=== PATIENT | male | born 1980 | race Caucasian/White ===

== ENCOUNTER 2018-03-23 15:55 | Emergency (ER) | payer MEDICAID ==
[2018-03-23] MEDS ORDERED: ONDANSETRON 4 MG/2 ML VIAL IVP ONE (16:56)
[2018-03-23] MEDS ORDERED: NS 1,000 ML IV ONE (16:56)
--- NOTE | 2018-03-23 17:23 | EDPHY ---
H & P Stated Complaint: diarrhea, n/v x 3 days, RUQ abd pain - Personal History Current Tetanus/Diphtheria Vaccine: Yes Current Tetanus Diphtheria and Acellular Pertussis (TDAP): Yes Tetanus Vaccine Date: 2012 - Medical/Surgical History Hx Asthma: No Hx Chronic Respiratory Disease: No Hx Diabetes: No Hx Cardiac Disease: No Hx Renal Disease: No Hx Cirrhosis: No Hx Alcoholism: Yes Hx HIV/AIDS: No Hx Splenectomy or Spleen Trauma: No Other PMH: ETOH - Social History Smoking Status: Current every day smoker Time Seen by Provider: 03/23/18 16:47 HPI/ROS: Chief complaint: Nausea, vomiting and diarrhea History of present illness: This is a 37-year-old male, reports an extensive use of alcohol, currently homeless, who presents to the emergency department for persistent nausea, vomiting and diarrhea. He states the onset of diarrhea began 4 days ago. Multiple episodes daily described as nonbloody. Today he started developed nausea and started to vomit, multiple episodes. Again nonbloody. He has had associated mild abdominal discomfort, primarily in the right upper quadrant. No associated fevers. He was trying to detox from alcohol when symptoms began. He started drinking again today but it did not alleviate symptoms. No report of sick contacts. No recent travel. No recent antibiotic use. In addition, patient reports he has extensive bug bites to his body as he has been sleeping outside is requesting treatment. Review of systems: A complete 10 point review of systems was obtained and other than described above was negative. (Kvng Jimenez) - Physical Exam Exam: General Appearance: Alert, nontoxic. Eyes: Pupils equal and round no pallor or injection. ENT, Mouth: Mucous membranes moist. Respiratory: There are no retractions, lungs are clear to auscultation. Cardiovascular: Regular rate and rhythm. Gastrointestinal: Bowel sounds are normal. The abdomen is soft, nondistended and nontender to palpation. Neurological: Alert and oriented x4. Strength and sensation intact and symmetrical. Skin: Extensive wounds to the body consistent with scabies. No evidence of secondary infection. Musculoskeletal: Extremities are symmetrical, full range of motion. Psychiatric: Patient is oriented X 3, there is no agitation. (Kvng Jimenez) Constitutional: Initial Vital Signs Temperature (C) 36.7 C 03/23/18 15:55 Heart Rate 95 03/23/18 15:55 Respiratory Rate 16 03/23/18 15:55 Blood Pressure 127/74 H 03/23/18 15:55 O2 Sat (%) 93 03/23/18 15:55 O2 Delivery Mode Room Air Allergies/Adverse Reactions: No Known Allergies Allergy (Verified 03/23/18 15:59) Home Medications: Medication Instructions Recorded Permethrin 5% [Elimite 5%] 60 hadley TP ONCE #1 cream 03/23/18 Medical Decision Making ED Course/Re-evaluation: Patient is discussed with my secondary supervising physician Dr. Andrea Toro. Patient presents for nausea, vomiting and diarrhea with associated right upper quadrant abdominal soreness. Further he is complaining of bug bites. He is nontoxic. Vital signs stable. Abdominal exam was performed on presentation and prior to discharge and remained benign. Blood studies are obtained. Mild elevation in lipase and LFTs. No other significant findings. He is IV hydrated and treated with Zofran. He is feeling better. Tolerating oral challenges. I believe he is appropriate for discharge. Symptomatic care is discussed. He is prescribed Zofran. I have also given permethrin for suspected scabies. I did ask if he would like to go to detox, he declined. He is to follow up with a primary care doctor for recheck. Return precautions are given. (Kvng Jimenez) Differential Diagnosis: Included but not limited to gastritis, gastroenteritis, biliary tract disease, pancreatitis as well as bug bite, contact dermatitis, allergic reaction and cellulitis (Kvng Jimenez) - Data Points Laboratory Results: Laboratory Results 03/23/18 16:15 03/23/18 16:15 03/23/18 03/23/18 16:15 16:15 WBC 5.71 10^3/uL 10^3/uL (3.80-9.50) RBC 4.61 10^6/uL 10^6/uL (4.40-6.38) Hgb 15.6 g/dL g/dL (13.7-17.5) Hct 44.0 % % (40.0-51.0) MCV 95.4 fL fL (81.5-99.8) MCH 33.8 pg pg (27.9-34.1) MCHC 35.5 g/dL g/dL (32.4-36.7) RDW 14.2 % % (11.5-15.2) Plt Count 169 10^3/uL 10^3/uL (150-400) MPV 10.3 fL fL (8.7-11.7) Neut % (Auto) 58.6 % % (39.3-74.2) Lymph % (Auto) 20.7 % % (15.0-45.0) [place] % (Auto) 12.1 % % (4.5-13.0) Eos % (Auto) 7.7 % H % (0.6-7.6) Baso % (Auto) 0.7 % % (0.3-1.7) Nucleat RBC Rel Count 0.0 % % (0.0-0.2) Absolute Neuts (auto) 3.35 10^3/uL 10^3/uL (1.70-6.50) Absolute Lymphs (auto) 1.18 10^3/uL 10^3/uL (1.00-3.00) Absolute Monos (auto) 0.69 10^3/uL 10^3/uL (0.30-0.80) Absolute Eos (auto) 0.44 10^3/uL H 10^3/uL (0.03-0.40) Absolute Basos (auto) 0.04 10^3/uL 10^3/uL (0.02-0.10) Absolute Nucleated RBC 0.00 10^3/uL 10^3/uL (0-0.01) Immature Gran % 0.2 % % (0.0-1.1) Immature Gran # 0.01 10^3/uL 10^3/uL (0.00-0.10) Sodium 143 mEq/L mEq/L (135-145) Potassium 3.8 mEq/L mEq/L (3.3-5.0) Chloride 107 mEq/L mEq/L (97-110) Carbon Dioxide 24 mEq/l mEq/l (22-31) Anion Gap 12 mEq/L mEq/L (8-16) BUN 10 mg/dL mg/dL (7-23) Creatinine 0.7 mg/dL mg/dL (0.7-1.3) Estimated GFR > 60 Glucose 101 mg/dL H mg/dL (70-100) Calcium 8.9 mg/dL mg/dL (8.5-10.4) Total Bilirubin 0.4 mg/dL mg/dL (0.1-1.4) Conjugated Bilirubin 0.2 mg/dL mg/dL (0.0-0.5) Unconjugated Bilirubin 0.2 mg/dL mg/dL (0.0-1.1) AST 307 IU/L H IU/L (17-59) ALT 211 IU/L H IU/L (21-72) Alkaline Phosphatase 89 IU/L IU/L (38-126) Total Protein 6.3 g/dL g/dL (6.3-8.2) Albumin 3.7 g/dL g/dL (3.5-5.0) Lipase 358 IU/L H IU/L (23-300) Medications Given: Discontinued Medications Sodium Chloride (Ns) 1,000 mls @ 0 mls/hr IV EDNOW ONE; Wide Open PRN Reason: Protocol Stop: 03/23/18 16:57 Last Admin: 03/23/18 17:01 Dose: 1,000 mls Ondansetron HCl (Zofran) 4 mg IVP EDNOW ONE Stop: 03/23/18 16:57 Last Admin: 03/23/18 17:00 Dose: 4 mg Ondansetron HCl (Zofran Odt 4 Mg Prepack#2) 1 btl TAKEHOME EDNOW ONE Stop: 03/23/18 19:50 Last Admin: 03/23/18 19:59 Dose: Not Given Departure - Departure Disposition: Home, Routine, Self-Care Clinical Impression: Vomiting and diarrhea Abdominal pain Qualifiers: Abdominal location: right upper quadrant Qualified Code(s): R10.11 - Right upper quadrant pain Condition: Good Instructions: Ondansetron (By mouth), Scabies (ED), Acute Nausea and Vomiting ( ED), Acute Diarrhea (ED), Abdominal Pain (ED) Referrals: NONE *PRIMARY CARE P,. [Primary Care Provider] - As per Instructions [facility],. [Clinic] - As per Instructions Prescriptions: Permethrin 5% [Elimite 5%] 60 hadley TP ONCE #1 cream
[2018-03-23 17:31] LABS: PLATELET COUNT 169 10^3/uL (150-400)
[2018-03-23] MEDS ORDERED: ONDANSETRON 4MG PREPACK#2 BTL TAKEHOME ONE (19:49)
[2018-03-23 19:58] VITALS: BP 147/90
== END 2018-03-23 19:59 | disposition home or self-care (01) ==
DX: R10.11 Right upper quadrant pain (principal); R11.10 Vomiting, unspecified; R19.7 Diarrhea, unspecified; E86.9 Volume depletion, unspecified; F10.99 Alcohol use, unspecified with unspecified alcohol-induced disorder; F17.200 Nicotine dependence, unspecified, uncomplicated
CPT/HCPCS: 96374; J2405

== ENCOUNTER 2018-07-11 07:29 | Emergency (ER) | payer MEDICAID ==
[2018-07-11] MEDS ORDERED: ONDANSETRON DISINTEGRATING 4 MG TAB PO ONE (08:02)
--- NOTE | 2018-07-11 08:08 | EDPHY ---
H & P Stated Complaint: Weak, achy, body pain, lightheaded, nausea, cough Time Seen by Provider: 07/11/18 07:56 HPI/ROS: CHIEF COMPLAINT: Cough, myalgias HISTORY OF PRESENT ILLNESS: 38-year-old male presents with cough and myalgias. Onset of moderate myalgias and fatigue yesterday. Associated with slight change in his chronic cough and subjective fever. Feels woozy and nauseated. Did not receive a flu vaccination this year. REVIEW OF SYSTEMS: complete 10 point ROS reviewed and is negative except for the noted elements in the HPI - Personal History Tetanus Vaccine Date: 2012 - Medical/Surgical History Hx Asthma: No Hx Chronic Respiratory Disease: No Hx Diabetes: No Hx Cardiac Disease: No Hx Renal Disease: No Hx Cirrhosis: No Hx Alcoholism: Yes Hx HIV/AIDS: No Hx Splenectomy or Spleen Trauma: No Other PMH: ETOH, orbital fx, concussion 06/02 - Social History Smoking Status: Current every day smoker Alcohol Use: Sober Drug Use: None - Physical Exam Exam: General Appearance: Alert, pleasant, nontoxic-appearing Eyes: Pupils equal and round, no conjunctival injection ENT, Mouth: Mucous membranes moist Neck: Normal inspection Respiratory: Lungs are clear to auscultation, no wheezing Cardiovascular: Regular rate and rhythm Gastrointestinal: Abdomen is soft and nontender Neurological: A&O, nonfocal exam Skin: Warm and dry, no rash Extremities: Normal inspection Psychiatric: Mood and affect normal Constitutional: Initial Vital Signs Temperature (C) 36.3 C 07/11/18 07:44 Heart Rate 85 07/11/18 07:44 Respiratory Rate 16 07/11/18 07:44 Blood Pressure 129/78 H 07/11/18 07:44 O2 Sat (%) 97 07/11/18 07:44 O2 Delivery Mode Room Air Allergies/Adverse Reactions: No Known Allergies Allergy (Verified 03/23/18 15:59) Home Medications: Medication Instructions Recorded Permethrin 5% [Elimite 5%] 60 hadley TP ONCE #1 cream 03/23/18 Ondansetron Odt [Zofran Odt 4 mg 4 mg PO Q4 PRN #6 tab 07/11/18 (*)] Medical Decision Making ED Course/Re-evaluation: This pt presents with an influenza-like illness. Flu swab negative. Zofran given for nausea. Feels better after Zofran, toleration oral fluids well. No evidence of pneumonia; normal VS/O2 sat and normal lung exam. Symptomatic care and warning signs discussed. Differential Diagnosis: includes though not limited to influenza, pneumonia, dehydration, bronchospasm - Data Points Medications Given: Discontinued Medications Ondansetron HCl (Zofran Odt) 4 mg PO EDNOW ONE Stop: 07/11/18 08:03 Last Admin: 07/11/18 08:29 Dose: 4 mg Departure - Departure Disposition: Home, Routine, Self-Care Clinical Impression: Viral syndrome Condition: Good Instructions: Influenza (ED), Viral Syndrome (ED) Additional Instructions: Ibuprofen 600 mg every 6-8 hours for fever and myalgias. Drink plenty of fluids. Return for worsening symptoms or any concerns. [facility] has walk-in appointments for the homeless at the following days/locations. No appointment is needed. Sunday 8-10 [address] @ [facility] 11 AM-1 PM @ [facility] Sunday 8-10:30 AM @ [facility] Sunday 8-10 AM @ [facility] 2-4 PM @ [facility] Sunday 8-10 AM @ [facility] Referrals: [facility],. [Clinic] - As per Instructions Prescriptions: Ondansetron Odt [Zofran Odt 4 mg (*)] 4 mg PO Q4 PRN #6 tab PRN Reason: Nausea
[2018-07-11 09:01] VITALS: BP 138/72
== END 2018-07-11 08:59 | disposition home or self-care (01) ==
LOC: EDUNIT#
DX: B34.9 Viral infection, unspecified (principal); F17.210 Nicotine dependence, cigarettes, uncomplicated

== ENCOUNTER 2018-11-12 16:07 | Inpatient (IN) | payer MEDICAID ==
[2018-11-12] MEDS ORDERED: LORazepam 2 MG/ML INJ IVP ONE (16:10)
--- NOTE | 2018-11-12 16:12 | EDPHY ---
H & P Time Seen by Provider: 11/12/18 16:08 HPI/ROS: CHIEF COMPLAINT: Nausea vomiting HISTORY OF PRESENT ILLNESS: The patient is a 38-year-old alcoholic who his last drink was last night. He began feeling nauseous and vomited several times this morning. He tried to drink vodka but threw it back up. He is slightly tremulous and tachycardic. He denies abdominal pain. No recent fevers or illness. No respiratory symptoms. He did have mild diarrhea. Nonbloody. He was given Zofran by EMS and feels slightly better. Severity: Moderate Modifying factors: Zofran REVIEW OF SYSTEMS: Constitutional: denies: chills, fever, recent illness, recent injury EENTM: denies: blurred vision, double vision, nose congestion Respiratory: denies: cough, shortness of breath Cardiac: denies: chest pain, irregular heart rate, lightheadedness, palpitations Gastrointestinal/Abdominal: denies: abdominal pain, diarrhea, nausea, vomiting, blood streaked stools Genitourinary: denies: dysuria, frequency, hematuria, pain Musculoskeletal: denies: joint pain, muscle pain Skin: denies: lesions, rash, jaundice, bruising Neurological: denies: headache, numbness, paresthesia, tingling, dizziness, weakness Hematologic/Lymphatic: denies: blood clots, easy bleeding, easy bruising Immunologic/allergic: denies: HIV/AIDS, transplant 10 systems reviewed and negative except as noted EXAM: GENERAL: Disheveled, moderate distress HEAD: Atraumatic, normocephalic. EYES: Pupils equal round and reactive to light, extraocular movements intact, sclera anicteric, conjunctiva are normal. ENT: TMs normal, nares patent, oropharynx clear without exudates. Moist mucous membranes. NECK: Normal range of motion, supple without lymphadenopathy or JVD. LUNGS: Breath sounds clear to auscultation bilaterally and equal. No wheezes rales or rhonchi. HEART: Regular rate and rhythm without murmurs, rubs or gallops. ABDOMEN: Soft, nontender, normoactive bowel sounds. No guarding, no rebound. No masses appreciated. BACK: No CVA tenderness, no spinal tenderness, step-offs or deformities EXTREMITIES: Slightly tremulous, Normal range of motion, no pitting or edema. No clubbing or cyanosis. NEUROLOGICAL: Cranial nerves II through XII grossly intact. Normal speech, normal gait. 5/5 strength, normal movement in all extremities, normal sensation , normal reflexes PSYCH: Normal mood, normal affect. SKIN: Warm, dry, normal turgor, no visible rashes or lesions. Source: Patient, EMS Exam Limitations: No limitations - Personal History Tetanus Vaccine Date: 2012 - Medical/Surgical History Hx Asthma: No Hx Chronic Respiratory Disease: No Hx Diabetes: No Hx Cardiac Disease: No Hx Renal Disease: No Hx Cirrhosis: No Hx Alcoholism: Yes Hx HIV/AIDS: No Hx Splenectomy or Spleen Trauma: No Other PMH: ETOH, orbital fx, concussion 06/02 - Family History Significant Family History: No pertinent family hx - Social History Smoking Status: Current every day smoker Alcohol Use: Heavy Constitutional: Initial Vital Signs Temperature (C) 36.9 C 11/12/18 16:15 Heart Rate 134 H 11/12/18 16:15 Respiratory Rate 26 H 11/12/18 16:15 Blood Pressure 99/60 L 11/12/18 16:15 O2 Sat (%) 92 11/12/18 16:15 O2 Delivery Mode Nasal Cannula O2 (L/minute) 2 Allergies/Adverse Reactions: No Known Allergies Allergy (Verified 11/12/18 16:20) Home Medications: Medication Instructions Recorded NK [No Known Home Meds] 11/12/18 Medical Decision Making - Diagnostics EKG Interpretation: An EKG obtained and was read and documented in trace view. Please see trace view for full reading and report. Sinus tachycardia Imaging Results: Imaging Impressions Chest X-Ray 11/12/18 17:28 Impression: Extensive ill-defined airspace disease in the left hemithorax. CT evaluation may be of benefit in further evaluation, as clinically directed. Chest CT 11/12/18 18:16 Impression: 1. Extensive pulmonary consolidation on the left and minimally on the right. This could reflect aspiration in a patient undergoing alcohol withdrawal. 2. Negative for acute posttraumatic abnormality. 3. Hepatic steatosis. 4. See above report for additional findings. Results called and discussed with Andrea Toro M.D. on 11/12/2018 at 19:43. Imaging: Discussed imaging studies w/ membership advisor Radiologist Procedures: Procedure: Ultrasound guidance: Using the linear probe covered in a sterile sheath, a short axis of the vein was obtained. The vein was completely compressible and was identified as separate from the adjacent non-compressible arterial structure. Under real-time guidance, the introducer needle was observed up to the vein, and then punctured it. These images were saved on the database. Central line placement: The indication for the procedure was septic shock. After verbal informed consent from patient; the risks were explained including bleeding, infection, and collapsed lung. Maximal sterile barrier technique was uses including cap, gown, sterile gloves, large sheet, hand washing and chlorhexidine prep. The area anesthetized with 1% lidocaine. The right IJ was punctured with a 19 gauge finder needle, then a wire introducer was placed, a triple-lumen was placed using Seldinger technique. There were no complications. Blood return low pressure, dark blood. The patient tolerated procedure well. CXR results: Slightly to deep as interpreted by myself. Line pulled back 2 cm to 16 at the skin and x-ray redone. Radiologist interpretation is pending. The procedure was performed by myself. ED Course/Re-evaluation: 5:00 p.m. Patient is sleeping but when awakened still slightly tremulous. Still tachycardic. Will hydrate and obtain lab work. Still feels slightly nauseous. Will treat with Haldol. No abdominal tenderness on exam. He states he has had about 10 episodes of vomiting yellow gastric fluid and 3 episodes of loose stool nonbloody all prior to arrival. 5:45 p.m. nursing staff noticed that he desaturated and had coarse breath sounds while sleeping. X-ray was ordered and has a left lower lobe infiltrate. Will initiate sepsis workup and treat with antibiotics and admit. 6:15 p.m. I discussed the case with Dr. Costa who will admit. She requests CT and agrees with central line placement. Differential Diagnosis: Partial list of the Differential diagnosis considered include but were not limited to; gastritis, alcohol withdrawal, pneumonia, sepsis and although unlikely based on the history and physical exam, I also considered acute coronary disease, dissection, arrhythmia. Critical Care Time: Critical care time spent by me, Dr. Toro exclusive with this patient was 45 minutes, exclusive of the PA time exclusive of procedures. The organ system that was at risk was pulmonary and I gave IV fluids, antibiotics, consultation and admission to prevent worsening of the patient's condition - Data Points Laboratory Results: Laboratory Results 11/12/18 17:00 11/12/18 17:00 11/12/18 11/12/18 11/12/18 17:45 17:45 17:00 WBC RBC Hgb Hct MCV MCH MCHC RDW Plt Count MPV Neut % (Auto) Lymph % (Auto) [place] % (Auto) Eos % (Auto) Baso % (Auto) Nucleat RBC Rel Count Absolute Neuts (auto) Absolute Lymphs (auto) Absolute Monos (auto) Absolute Eos (auto) Absolute Basos (auto) Absolute Nucleated RBC Immature Gran % Seg Neutrophils % Band Neutrophils % Lymphocytes % Monocytes % Eosinophils % Basophils % Metamyelocytes % Myelocytes % Promyelocytes % Blast Cells % Immature Gran # Absolute Seg Neuts Absolute Band Neuts Absolute Lymphocytes Absolute Monocytes Absolute Eosinophils Absolute Basophils Absolute Metamyelocyte Absolute Myelocytes Absolute Promyelocytes Absolute Plasma Cells Nucleated RBCs Absolute Blast Cells Plasma Cells % Platelet Estimate Oval Macrocytes PT 15.2 SEC H SEC (12.0-15.0) INR 1.25 H (0.83-1.16) APTT 33.1 SEC SEC (23.0-38.0) VBG Lactic Acid 5.1 mmol/L H mmol/L (0.7-2.1) Sodium 130 mEq/L L mEq/L (135-145) Potassium 4.1 mEq/L mEq/L (3.5-5.2) Chloride 96 mEq/L L mEq/L (97-110) Carbon Dioxide 18 mEq/l L mEq/l (22-31) Anion Gap 16 mEq/L H mEq/L (6-14) BUN 30 mg/dL H mg/dL (7-23) Creatinine 1.1 mg/dL mg/dL (0.7-1.3) Estimated GFR > 60 Glucose 65 mg/dL L mg/dL (70-100) Calcium 6.7 mg/dL L mg/dL (8.5-10.4) Total Bilirubin 0.9 mg/dL mg/dL (0.1-1.4) Conjugated Bilirubin 0.5 mg/dL mg/dL (0.0-0.5) Unconjugated Bilirubin 0.4 mg/dL mg/dL (0.0-1.1) AST 402 IU/L H IU/L (17-59) ALT 169 IU/L H IU/L (21-72) Alkaline Phosphatase 44 IU/L IU/L (38-126) Total Protein 5.6 g/dL L g/dL (6.3-8.2) Albumin 3.1 g/dL L g/dL (3.5-5.0) Lipase 101 IU/L IU/L (23-300) 11/12/18 17:00 WBC 10.70 10^3/uL H 10^3/uL (3.80-9.50) RBC 4.11 10^6/uL L 10^6/uL (4.40-6.38) Hgb 14.8 g/dL g/dL (13.7-17.5) Hct 41.8 % % (40.0-51.0) MCV 101.7 fL H fL (81.5-99.8) MCH 36.0 pg H pg (27.9-34.1) MCHC 35.4 g/dL g/dL (32.4-36.7) RDW 12.8 % % (11.5-15.2) Plt Count 150 10^3/uL 10^3/uL (150-400) MPV 10.1 fL fL (8.7-11.7) Neut % (Auto) Not Reported Lymph % (Auto) Not Reported [place] % (Auto) Not Reported Eos % (Auto) Not Reported Baso % (Auto) Not Reported Nucleat RBC Rel Count Not Reported Absolute Neuts (auto) Not Reported Absolute Lymphs (auto) Not Reported Absolute Monos (auto) Not Reported Absolute Eos (auto) Not Reported Absolute Basos (auto) Not Reported Absolute Nucleated RBC Not Reported Immature Gran % Not Reported Seg Neutrophils % 33.3 % % Band Neutrophils % 33.3 % % Lymphocytes % 2.0 % % Monocytes % 17.2 % % Eosinophils % 0.0 % % Basophils % 0.0 % % Metamyelocytes % 14.2 % % Myelocytes % 0.0 % % Promyelocytes % 0.0 % % Blast Cells % 0.0 % % Immature Gran # Not Reported Absolute Seg Neuts 3.56 10^3/uL 10^3/uL (1.70-6.50) Absolute Band Neuts 3.56 10^3/uL H 10^3/uL (0.00-0.70) Absolute Lymphocytes 0.21 10^3/uL L 10^3/uL (1.00-3.00) Absolute Monocytes 1.84 10^3/uL H 10^3/uL (0.30-0.80) Absolute Eosinophils 0.00 10^3/uL L 10^3/uL (0.03-0.40) Absolute Basophils 0.00 10^3/uL L 10^3/uL (0.02-0.10) Absolute Metamyelocyte 1.52 10^3/mL H 10^3/mL (0.00-0.00) Absolute Myelocytes 0.00 10^3/mL 10^3/mL (0.00-0.00) Absolute Promyelocytes 0.00 10^3/uL 10^3/uL (0.00-0.00) Absolute Plasma Cells 0.00 10^3/uL 10^3/uL (0.00-0.00) Nucleated RBCs 0 /100 WBC /100 WBC (0-0) Absolute Blast Cells 0.00 10^3/uL 10^3/uL (0.00-0.00) Plasma Cells % 0.0 % % Platelet Estimate ADEQUATE (ADEQ) Oval Macrocytes 1+ H PT INR APTT VBG Lactic Acid Sodium Potassium Chloride Carbon Dioxide Anion Gap BUN Creatinine Estimated GFR Glucose Calcium Total Bilirubin Conjugated Bilirubin Unconjugated Bilirubin AST ALT Alkaline Phosphatase Total Protein Albumin Lipase Microbiology Results: MICROBIOLOGY 11/12/18 18:00 Nasal, Sinus - Swab Respiratory Panel (PCR) - Final No Organism Detected By Pcr Medications Given: Sodium Chloride (Ns) 1,000 mls @ 150 mls/hr IV CONT JATIN Stop: 05/11/19 18:29 Last Admin: 11/12/18 19:58 Dose: 1,000 mls Metronidazole/Sodium Chloride (Flagyl 500 Mg (Premix)) 100 mls @ 100 mls/hr IV Q8H JATIN PRN Reason: Protocol Stop: 12/12/18 19:29 Last Admin: 11/12/18 19:58 Dose: 100 mls Lorazepam (Ativan Injection) 0 mg IVP Q1H PRN; Protocol PRN Reason: Alcohol Withdrawal w/IV access Stop: 05/11/19 18:19 Last Admin: 11/12/18 19:59 Dose: 2 mg Discontinued Medications Acetaminophen (Tylenol) 1,000 mg PO EDNOW ONE Stop: 11/12/18 17:58 Last Admin: 11/12/18 18:04 Dose: 1,000 mg Haloperidol Lactate (Haldol Injection) 5 mg IVP EDNOW ONE Stop: 11/12/18 16:57 Last Admin: 11/12/18 17:06 Dose: 5 mg Sodium Chloride (Ns) 1,000 mls @ 0 mls/hr IV EDNOW ONE; Wide Open PRN Reason: Protocol Stop: 11/12/18 16:57 Last Admin: 11/12/18 17:02 Dose: 1,000 mls Sodium Chloride (Ns) 1,000 mls @ 0 mls/hr IV EDNOW ONE; Wide Open PRN Reason: Protocol Stop: 11/12/18 16:57 Last Admin: 11/12/18 17:02 Dose: 1,000 mls Azithromycin 500 mg/ Sodium (Chloride) 255 mls @ 255 mls/hr IV EDNOW ONE PRN Reason: Protocol Stop: 11/12/18 18:42 Last Admin: 11/12/18 18:26 Dose: 255 mls Ceftriaxone Sodium/Dextrose (Rocephin 1 Gm (Premix)) 50 mls @ 100 mls/hr IV EDNOW ONE PRN Reason: Protocol Stop: 11/12/18 18:10 Last Admin: 11/12/18 18:13 Dose: 50 mls Sodium Chloride (Ns) 2,300 mls @ 4,600 mls/hr 30 ml/kg infuse over 30 min ( 2300 ml) IV EDNOW ONE PRN Reason: Protocol Stop: 11/12/18 18:10 Last Admin: 11/12/18 17:51 Dose: Not Given Sodium Chloride (Ns) 1,000 mls @ 0 mls/hr IV EDNOW ONE; Wide Open PRN Reason: Protocol Stop: 11/12/18 18:12 Last Admin: 11/12/18 18:12 Dose: 1,000 mls Lorazepam (Ativan Injection) 2 mg IVP EDNOW ONE Stop: 11/12/18 16:11 Last Admin: 11/12/18 16:13 Dose: 2 mg Departure - Departure Disposition: [facility] Inpatient Acute Clinical Impression: Septic shock Left lower lobe pneumonia Qualifiers: Pneumonia type: due to unspecified organism Qualified Code(s): J18.1 - Lobar pneumonia, unspecified organism Vomiting Qualifiers: Vomiting type: unspecified Vomiting Intractability: non-intractable Nausea presence: with nausea Qualified Code(s): R11.2 - Nausea with vomiting, unspecified Alcohol withdrawal Qualifiers: Complication of substance-induced condition: uncomplicated Qualified Code(s): F10.230 - Alcohol dependence with withdrawal, uncomplicated Condition: Critical
[2018-11-12] MEDS ORDERED: NS 1,000 ML IV ONE ×4 (16:56→20:51)
[2018-11-12] MEDS ORDERED: HALOPERIDOL LACT 5 MG/ML INJ IVP ONE (16:56)
[2018-11-12 17:16] LABS: PLATELET COUNT 150 10^3/uL (150-400)
[2018-11-12] MEDS ORDERED: NS 2,300 ML IV ONE (17:41)
[2018-11-12] MEDS ORDERED: AZITHROMYCIN IV 500 MG in NS 250 ML IV ONE (17:43)
[2018-11-12] MEDS ORDERED: ACETAMINOPHEN 500 MG TAB PO ONE (17:57)
[2018-11-12 18:01] LABS: INR 1.25 (0.83-1.16); PROTIME(PATIENT) 15.2 SEC (12.0-15.0)
--- NOTE | 2018-11-12 18:04 | CPEKG ---
Test Reason : OPEN Blood Pressure : / mmHG Vent. Rate : 134 BPM Atrial Rate : 134 BPM P-R Int : 112 ms QRS Dur : 076 ms QT Int : 290 ms P-R-T Axes : 037 062 -13 degrees QTc Int : 433 ms Sinus tachycardia Confirmed by Andrea Toro ([id number]) on 11/12/2018 6:04:14 PM Referred By: Andrea Toro Confirmed By:Andrea Toro
[2018-11-12] MEDS ORDERED: ONDANSETRON DISINTEGRATING 4 MG TAB PO PRN (18:18)
[2018-11-12] MEDS ORDERED: ONDANSETRON 4 MG/2 ML VIAL IVP PRN (18:18)
[2018-11-12] MEDS ORDERED: ACETAMINOPHEN 325 MG TAB PO PRN (18:18)
[2018-11-12] MEDS ORDERED: IOPAMIDOL (ISOVUE-300) 100 ML BTL ONE (18:19)
[2018-11-12] MEDS ORDERED: FLUMAZENIL 0.5 MG/5 ML MDV IVP PRN (18:20)
[2018-11-12] MEDS ORDERED: NOREPINEPHRINE BITARTRATE 4 MG in NS 500 ML IV SCH (19:30)
[2018-11-12] MEDS ORDERED: *PHM DO NOT USE-METRONIDAZOLE 5 MG/ML IV PED/NEWBORN SYR IV ONE (19:38)
[2018-11-12] MEDS: NS 1,000 ML IV SCH (19:58)
[2018-11-12] MEDS: LORazepam 2 MG/ML INJ IVP PRN ×2 (19:59→21:17)
[2018-11-12] MEDS ORDERED: METRONIDAZOLE 500 MG/NACL/100 ML BAG IV ONE (20:00)
--- NOTE | 2018-11-12 20:05 | GHP ---
[f rep st] HISTORY AND PHYSICAL DATE OF ADMISSION: 11/12/2018 CHIEF COMPLAINT: Sepsis, nausea, vomiting. HISTORY OF PRESENT ILLNESS: A 38-year-old male with alcohol dependence. His last drink was this morning. Presents with nausea, vomiting, cough. He was feeling fine up until last night when he developed these symptoms. He has been coughing with blood-streaked sputum for the past day. He has felt feverish with cold sweats, along with myalgias. He is living in a longterm. Had 2 episodes of nonbloody diarrhea today. Drinks 1.75 L of vodka daily. Smokes a pack a day. In the emergency room, he was tachycardic to 140s, with systolic blood pressure in the 90s. Central line was placed by Dr. Toro. The patient transferred to ICU for further care. REVIEW OF SYSTEMS: I completed a 10-point review of systems, negative except as noted in HPI. PAST MEDICAL HISTORY: Alcohol dependence, tobacco dependence. PAST SURGERIES: None. HOME MEDICATIONS: None. ALLERGIES: None. FAMILY HISTORY: No heart attacks or strokes. PHYSICAL EXAMINATION: VITAL SIGNS: Temperature 37.3, blood pressure initially 107/91, now 91/67, heart rate is in the 140s, respirations 20s to 40s, 96% on 3 L. GENERAL: Is ill appearing, tremulous, reanna face. HEENT: Dry mucous membranes. CV: Tachy, regular. LUNGS: Coarse, decreased, left midlung to base. ABDOMEN: Soft, nontender. : No Wynn. MUSCULOSKELETAL: Bruising of bilateral knees. NEURO: 2 through 12 intact. Tremulous, tongue fasciculations. PSYCH: Alert and oriented x3. LABORATORY DATA: WBC 10, hemoglobin 14, hematocrit 41, platelets 150. INR 1.2 , PT 15. Lactate 5.1, repeat 3.7. Sodium 130, potassium 4.1, chloride 96, carbon dioxide 18, anion gap 16, creatinine 1.1, glucose 65, calcium 6.7. AST 42, ALT 109, total protein 5.6, albumin 3.1, total bilirubin 0.9, lipase 101. Chest x-ray is personally reviewed by me: Left hemithorax opacity. EKG personally reviewed by me: Sinus tachycardia. ASSESSMENT/PLAN: 1. Severe sepsis: Indicated by elevated lactate, tachycardia, and pneumonia. Sputum and blood cultures pending. Respiratory/GI PCR pending. Treat for CAP with CTX/Azithro, Flagyl added for aspiration. Aggressive IVFs. Pressors if needed 2. Left sided pneumonia: Ill-defined on x-ray. Will further delineate with CT of chest. Currently stable on RA, but very tachypneic; may tire out and need intubation. 3. Tachycardia: Due to dehydration and alcohol withdrawal. Monitor on telemetry. Clinical [place] Withdrawal Assessment. 4. Alcohol dependence. Evidence of withdrawal now. ClWA, IV fluids. Check Mg/ Phos/Ca. 5. Hypovolemic hyponatremia. Replete. 6. Metabolic anion gap acidosis secondary to alcohol/starvation ketoacidosis. Rehydrate. 7. Mild acute kidney injury, creatinine 1.1, due to nausea, vomiting. 8. Hypoglycemia: Initially 65, repeat is 93. 9. Transaminitis due to alcohol. 10. Lack lactic acidosis: Secondary to alcohol, starvation, acute infection. Is trending down with fluids. We will repeat. 11. Diet: Regular. 12. Deep venous thrombosis prophylaxis: Lovenox. DISPOSITION: Patient warrants ICU admission. He is critically ill with severe sepsis, warranting IV fluids, antibiotics, possible pressors. Time spent on critical care: 60 minutes evaluating patient bedside, reviewing labs, imaging, discussing case with Dr. Toro. /[id number]/MODL [id number]
[2018-11-12] MEDS ORDERED: NS BOLUS 1000 ML IV ONE (21:30)
[2018-11-12] MEDS ORDERED: IPRATROPIUM/ALBUTEROL 3 ML DEYVIAL IH PRN (22:53)
[2018-11-12] MEDS: NICOTINE 21 MG/24 HR PATCH TD SCH (23:02)
[2018-11-12] MEDS ORDERED: CALCIUM GLUCONATE 50 ML IV ONE (23:30)
[2018-11-12] MEDS ORDERED: PROTOCOL CALCIUM 1 DOSE IV PRN (23:32)
[2018-11-12] MEDS ORDERED: PROTOCOL MAGNESIUM 1 DOSE IV PRN (23:32)
[2018-11-12] MEDS ORDERED: PROTOCOL POTASSIUM 1 DOSE MISC PRN (23:32)
[2018-11-12] MEDS ORDERED: PROTOCOL K PHOSPHATE 1 DOSE IV PRN (23:32)
[2018-11-12] MEDS ORDERED: MAGNESIUM SULF 2 GM/WATER 50 ML IV ONE (23:36)
--- NOTE | 2018-11-13 00:02 | HOSPPROG ---
Hospitalist Progress Note Assessment/Plan: Hospitalist night float note Patient was discussed with Dr. Costa before going off shift. 38-year-old gentleman with history of alcohol dependence who presents with complaints of cough. Patient was found to be septic with some mildly low blood pressures related to a significant left sided pneumonia. He was fluid responsive. He had a central line put into place and started on antibiotics. Patient additionally was noted to be in alcohol withdrawal requiring at time of my interview 6 mg of Ativan. Patient with increasing respiratory rate more shallow breaths and need for increasing oxygen. Case and current labs were discussed with Dr. Sadler (pulm/cc) - discussed and recommended intubation in setting of severe sepsis along with likely need for additional sedation for alcohol withdrawal. He is on route to the hospital. Patient is able to wake to name. I did briefly discussed with him need for intubation. He is amenable to proceed. Additional chronic critical care time today 11/12/2018 30 minutes Objective: Vital Signs Temp Pulse Resp BP Pulse Ox 36.8 C 135 H 40 H 105/78 92 11/12/18 22:00 11/12/18 23:05 11/12/18 23:05 11/12/18 23:00 11/12/18 23:05 Microbiology 11/12/18 20:25 - Final Sputum, Expectorated 11/11/18 11/12/18 11/13/18 05:59 05:59 05:59 Intake Total 200 Output Total 1475 Balance -1275 PT 15.2 SEC (12.0-15.0) H 11/12/18 17:45 INR 1.25 (0.83-1.16) H 11/12/18 17:45 ICD10 Worksheet Patient Problems: Problems Problem Status Onset Alcohol withdrawal Acute Left lower lobe pneumonia Acute Septic shock Acute Vomiting Acute
[2018-11-13] MEDS ORDERED: PROPOFOL/EMULSION 1,000 MG/100 ML BOTTLE IV ONE (00:03)
[2018-11-13] MEDS: LORazepam 2 MG/ML INJ IVP PRN (00:32)
[2018-11-13] MEDS ORDERED: MIDAZOLAM 2 MG/2 ML VIAL IVP ONE (00:45)
[2018-11-13] MEDS ORDERED: ETOMIDATE 40 MG/20 ML INJ IV ONE (00:45)
[2018-11-13] MEDS: PROPOFOL/EMULSION 100 ML IV SCH ×5 (00:50→20:12)
[2018-11-13] MEDS: DEXMEDETOMIDINE HCL 400 MCG in NS 100 ML IV SCH ×4 (00:50→10:20)
[2018-11-13] MEDS: fentaNYL/NACL 100 ML IV SCH (02:00)
[2018-11-13] MEDS: ACETAMINOPHEN 650 MG SUPP PR PRN ×2 (02:01→08:18)
--- NOTE | 2018-11-13 02:11 | GCON ---
[f rep st] CONSULTATION CRITICAL CARE CONSULTATION. DATE OF CONSULTATION: 11/13/2018 HISTORY OF PRESENT ILLNESS: This patient is a 38-year-old male with a history of alcohol dependence who was admitted late yesterday complaining of blood-streaked sputum for the last day. He has also b een complaining of sweats and generalized myalgias, as well as 2 episodes of diarrhea. He drinks ani rly 2 L of vodka daily and smokes regularly and in the emergency department had a borderline blood pr essure and significant tachycardia. He was admitted to the intensive care unit and started on CIWA p rotocol. He received about 6 mg of Ativan during his time in the ICU, but his respiratory rate was 3 0 to 50 breaths per minute, and an arterial blood gas showed a CO2 of only about 40, which should be 30 or 20. In any case, a chest x-ray and CT scan showed a dense consolidation in the left upper lobe and left lower lobe. His white count was 10 when he got here and he was given antibiotics. However , based on the above data, he was emergently intubated, which is dictated separately. REVIEW OF SYSTEMS: Otherwise negative as far as I can tell. PAST MEDICAL HISTORY: Only alcoholism and homelessness. He lives, I believe, in a nursing home and is a smoker. PAST SURGICAL HISTORY: None. MEDICATIONS: Home medication are none, but currently he is getting Tylenol, DuoNeb, Zithromax, ceftr iaxone, Lovenox, Ativan, Flagyl, NicoDerm, Zofran, normal saline, thiamin. PHYSICAL EXAM: VITAL SIGNS: Blood pressure 104/58; heart rate of 138, sinus rhythm; respiratory rat e 48; oxygen saturation 95% on 5 L. GENERAL: He was arousable but confused and not agitated, but in obvious respiratory distress and was not able to speak in full sentences. SKIN: Warm and dry. RONNI NT: Pupils equally round and reactive to light. Nonicteric and noninjected. Mucous membranes were moist without erythema or exudate. NECK: Supple without adenopathy or jugular vein distention. CHRISTIAN GS: Breath sounds revealed bilateral coarse breath sounds without wheezing. HEART: Regular rate an d rhythm without murmurs, rubs, or gallops. ABDOMEN: Soft, nontender, nondistended without hepatosp lenomegaly that I could tell. EXTREMITIES: No clubbing, cyanosis, or edema. NEUROLOGIC: Nonfocal. SKIN: There was no evidence of rash. OBJECTIVE DATA: White count of 10.7, hematocrit of 41.8, platelets of 150. INR 1.25. Blood gas damian wed pH 7.34, pCO2 40, pO2 80, bicarb 21, sat 94%. Basic metabolic panel was initially remarkable for sodium 130, now 135, and a bicarb of 18 with a normal anion gap. Magnesium was low at 0.8. This jean s been replaced. Ionized calcium 0.91. Phosphorus 3.5. AST and ALT were 402 and 169 with alkaline phosphatase of 44, albumin 3.1, total bilirubin of 0.5. Tox screen shows only marijuana. Urinary st rep antigen is pending. Imaging as described above. ASSESSMENT AND PLAN: 1. Severe community-acquired pneumonia with potential for aspiration involvement given his emesis. I agree with the current antibiotics until cultures show otherwise, but my estimation is that he will likely get worse before better and required the emergent intubation. I do not believe that steroids would be indicated at this time for his pneumonia, but we may consider at a later date. 2. Alcohol withdrawal. He reported to the emergency room his last drink was 24 hours prior to admis doreen. He was showing signs of alcohol withdrawal and was under the [facility] protocol for this. At this point, we will use scheduled Ativan. I will add Precedex to the sedation protocol and continue to ev aluate him. 3. Transaminitis. This is likely related to alcohol since there is no evidence of septic shock at t his moment. In any case, we will continue to follow these closely. We may have to check hepatitis s erologies. A total of about 60 minutes of critical care time was required separate from procedures. /[id number]/MODL
[2018-11-13] MEDS ORDERED: MAGNESIUM SULF 1 GM/DEXTROSE 100 ML IV ONE (03:05)
[2018-11-13] MEDS: NOREPINEPHRINE BITARTRATE 16 MG in NS 250 ML IV SCH ×3 (03:09→15:57)
--- NOTE | 2018-11-13 03:16 | GPN ---
[f rep st] PROCEDURE NOTE PROCEDURE: Emergent intubation. INDICATION: Respiratory failure with severe community-acquired pneumonia. CONSENT: Was waived due to the emergent nature of the procedure, though I did explain it to the leona ent, who was in distress at the time. ANESTHESIA: Conscious sedation was achieved using a total of 1 mg Versed, 2 mg Ativan, and 40 mg of etomidate. The patient tolerated these well without complication. DESCRIPTION OF PROCEDURE: An 8-0 endotracheal tube was passed on the first attempt using a GlideScop e after pre-oxygenation up to about 100% with bag mask valve ventilation. The patient tolerated thes e well, and there were no obvious complications. The tube had appropriate condensation with equal br eath sounds and no midepigastric sounds. Oxygen saturation stayed at 98%, and a post procedure chest x-ray is pending at this time. There was also adequate color change on capnography. /[id number]/MODL
[2018-11-13] MEDS ORDERED: CALCIUM GLUCONATE 50 ML IV ONE (05:57)
[2018-11-13] MEDS: LORazepam 2 MG/ML INJ IVP SCH ×3 (06:00→18:00)
[2018-11-13] MEDS: NS 1,000 ML IV SCH ×2 (06:29→13:56)
[2018-11-13] MEDS: FAMOTIDINE 20 MG/NACL 50 ML IV SCH ×2 (08:18→20:10)
[2018-11-13] MEDS: NICOTINE 21 MG/24 HR PATCH TD SCH (08:18)
[2018-11-13] MEDS: ENOXAPARIN 40 MG/0.4 ML SYR SC SCH (08:18)
[2018-11-13] MEDS: CHLORHEXIDINE GLUCONATE 15 ML UDL PO SCH ×2 (08:20→20:10)
[2018-11-13] MEDS ORDERED: AZITHROMYCIN 250 MG TAB PO SCH (09:00)
[2018-11-13] MEDS: VASOPRESSIN 25 UNIT in D5W 250 ML IV SCH ×3 (09:45→18:25)
[2018-11-13] MEDS: THIAMINE HCL 500 MG in NS 100 ML IV SCH (10:20)
--- NOTE | 2018-11-13 11:22 | PDMN ---
Medical Necessity Medical necessity: Pt meets IP criteria per MD & MCG M-160; est los >2 mn for eval/tx of severe sepsis w/tachycardia, tachypnea, pneumonia & alcohol withdrawal; admit to ICU for close monitoring, intubation & CIWA/sepsis protocols; hx alcohol dependence; per H&P & order 11/12
--- NOTE | 2018-11-13 11:29 | ASMTCMCOM ---
CM Note CM Note Notes: Pt is a 38 yo M presents with pneumonia, sepsis and etoh withdrawl. History of drinking 2L/ day. History of meth use, last use 2 months ago. Pt is homeless. Pt is currently on vent. Ethics consulted to help with Health Care Proxy search. CM to follow. Plan: Needs CAGE once able to engage in conversation Date Signed: 11/13/2018 11:28 AM Electronically Signed By:STACEY Angel
--- NOTE | 2018-11-13 14:50 | PDINTPN ---
Draw Frame Operator Progress Note Assessment/Plan: 38 M with history of alcoholism admitted 11/12 with severe pna and etoh withdrawal. He was treated with antibiotics and CIWA protocol but developed severe dyspnea and required emergent intubation late 11/12. He was difficult to sedate and required precedex, propofol, fentanyl and 6 hr ativan. He dropped his BP early 11/13 and required levophed, but this was titrated down rapidly with reduction in sedation medication. * Pneumonia- some history suggests aspiration, but likely severe CAP. Currently treated with CTX, zithromax, and Flagyl. Cultures NTD. Slight increase WBC today and persistent high fever * acute respiratory failure with hypoxia and vent management 08/17 PNA- minimal vent support with adequate ventilation. Recheck am CXR, abg. * hypotension- consistent with hypovolemia and likely septic shock. Add vasopressin and continue to titrate levophed. If not <10mcg by mid-afternoon will check NICOM. * ETOH wd- continue scheduled ativan for now but may be able to reduce precedex and improve BP. * Transaminitis- possible shock liver. Continue to observe and consider hep serologies if not improved * * critical care time 45 minutes Subjective: hypotension following intubation last pm and with addition of fentanyl. Apparently difficult to sedate Objective: Vital Signs Temp Pulse Resp BP Pulse Ox 39.1 C H 87 20 93/72 L 96 11/13/18 14:28 11/13/18 14:28 11/13/18 14:28 11/13/18 14:28 11/13/18 14:28 Microbiology 11/12/18 20:25 - Final Sputum, Expectorated Laboratory Results 11/13/18 05:30 11/13/18 11:35 11/12/18 11/13/18 11/14/18 05:59 05:59 05:59 Intake Total 4493 Output Total 2825 Balance 1668 PT 15.2 SEC (12.0-15.0) H 11/12/18 17:45 INR 1.25 (0.83-1.16) H 11/12/18 17:45 Physical Exam - Physical Exam General Appearance: WD/WN, no apparent distress, obtunded EENT: PERRL/EOMI, ET tube Neck: supple Respiratory: rhonchi, No respiratory distress, No accessory muscle use, No wheezing Cardiac/Chest: regular rate, rhythm, No edema, No JVD Abdomen: non-tender, soft, No distended Skin: normal color, warm/dry, No cyanosis Lymphatic: no adenopathy Extremities: No pedal edema Neuro/Psych: no motor/sensory deficits, cognition abnormalities, No abnormal auto parts manager II-XII ICD10 Worksheet Patient Problems: Problems Problem Status Onset Alcohol withdrawal Acute Left lower lobe pneumonia Acute Septic shock Acute Vomiting Acute
--- NOTE | 2018-11-13 15:50 | HOSPPROG ---
Hospitalist Progress Note Assessment/Plan: 1. Septic Shock - Indicated by elevated lactate, tachycardia, leukocytosis, hypotension requiring pressors, and source L PNA - S/p 30 cc/kg IVF on admission - Requiring initiation of Levophed and Vasopressin to maintain MAP >65, wean as tolerated - Blood and sputum cultures pending - Started on Ceftriaxone/Azithromycin/Flagyl on admission, will continue for now pending culture data 2. Acute Hypoxic Respiratory Failure - RR 40-50's soon after admission requiring intubation, in setting of heavy alcohol use/withdrawal - CXR showing L sided PNA on CT, likely aspiration given hx - Plan to repeat CXR, ABG in the AM - Wean vent as tolerated, management per pulm 3. ETOH Withdrawal - Reported drinking 2L Vodka daily - Initiaed on scheduled Ativan and precedex on admission, continue for now - Plan to wean precedex as tolerated 4. Transaminitis - AST 619, ALT 209, T Bili 1.3 on admission - In setting of heavy alcohol use as above - Continue to monitor, may be component of shock liver as well 5. Hypovolemix Hyponatremia - S/p IV on admission - Na 135 this AM, continue to monitor FEN: IVF, NPO DVT PPx: Lovenox Code: FULL Dispo: Pending clinical course Critical Care time spent on patient care 40 minutes Objective: Vital Signs Temp Pulse Resp BP Pulse Ox 37.6 C 79 24 H 100/66 97 11/13/18 15:37 11/13/18 15:37 11/13/18 15:37 11/13/18 15:37 11/13/18 15:37 Microbiology 11/12/18 20:25 - Final Sputum, Expectorated Laboratory Results 11/13/18 05:30 11/13/18 11:35 11/12/18 11/13/18 11/14/18 05:59 05:59 05:59 Intake Total 4493 Output Total 2825 Balance 1668 PT 15.2 SEC (12.0-15.0) H 11/12/18 17:45 INR 1.25 (0.83-1.16) H 11/12/18 17:45 ICD10 Worksheet Patient Problems: Problems Problem Status Onset Alcohol withdrawal Acute Left lower lobe pneumonia Acute Septic shock Acute Vomiting Acute
[2018-11-13] MEDS: AZITHROMYCIN IV 250 MG in D5W 250 ML IV SCH (18:00)
[2018-11-14] MEDS: LORazepam 2 MG/ML INJ IVP SCH ×4 (00:53→17:04)
[2018-11-14] MEDS: NS 1,000 ML IV SCH (00:54)
[2018-11-14] MEDS: VASOPRESSIN 25 UNIT in D5W 250 ML IV SCH ×2 (03:44→20:14)
[2018-11-14] MEDS: PROPOFOL/EMULSION 100 ML IV SCH ×4 (03:44→21:57)
[2018-11-14 04:32] LABS: PLATELET COUNT 147 10^3/uL (150-400)
[2018-11-14] MEDS: CHLORHEXIDINE GLUCONATE 15 ML UDL PO SCH ×2 (08:28→21:18)
[2018-11-14] MEDS: FAMOTIDINE 20 MG/NACL 50 ML IV SCH ×2 (09:53→21:18)
[2018-11-14] MEDS: NICOTINE 21 MG/24 HR PATCH TD SCH (09:54)
[2018-11-14] MEDS: ENOXAPARIN 40 MG/0.4 ML SYR SC SCH (09:54)
[2018-11-14] MEDS: THIAMINE HCL 500 MG in NS 100 ML IV SCH (09:54)
--- NOTE | 2018-11-14 12:51 | PDINTPN ---
Interlocker Maintainer Progress Note Assessment/Plan: 38 M with history of alcoholism admitted 11/12 with severe pna and etoh withdrawal. He was treated with antibiotics and CIWA protocol but developed severe dyspnea and required emergent intubation late 11/12. He was difficult to sedate and required precedex, propofol, fentanyl and 6 hr ativan. He dropped his BP early 11/13 and required levophed, but this was titrated down rapidly with reduction in sedation medication. * Pneumonia- some history suggests aspiration, but likely severe CAP. Currently treated with CTX, zithromax, and Flagyl. Cultures NTD. Fever has resolved, but WBC still rising, perhaps catching up. If WBC continues to rise will consider bronch and/or CT chest looking for necrosis/abscess * acute respiratory failure with hypoxia and vent management 2/2 PNA- minimal vent support with adequate ventilation. Stable CXR. Weaning trial today * hypotension- consistent with hypovolemia and likely septic shock. Vasopressin was off resulting in higher levophed dose- changed and now on vasopressin with off/on levophed so overall hemodynamics improving. * Non-gap metabolic acidosis likely from high volume NS given rise in chloride. Observe * ETOH wd- continue scheduled ativan. Precedex dc'd * Transaminitis- likely shock liver, but hep serologies sent * FEN- start TF today. * critical care time 65 minutes 11/14/18 12:46 Subjective: still on pressors though coming down. More alert today Objective: Vital Signs Temp Pulse Resp BP Pulse Ox 37.4 C 77 22 H 93/63 L 100 11/14/18 12:00 11/14/18 12:00 11/14/18 12:00 11/14/18 12:00 11/14/18 12:00 Microbiology 11/12/18 20:25 - Final Sputum, Expectorated Laboratory Results 11/14/18 04:10 11/14/18 08:30 11/13/18 11/14/18 11/15/18 05:59 05:59 05:59 Intake Total 4493 3461 Output Total 2825 1350 Balance 1668 2111 PT 15.2 SEC (12.0-15.0) H 11/12/18 17:45 INR 1.25 (0.83-1.16) H 11/12/18 17:45 Physical Exam - Physical Exam General Appearance: WD/WN, no apparent distress, other (sedated, but nods head appropriately) EENT: PERRL/EOMI, ET tube, No scleral icterus (R), No scleral icterus (L) Neck: supple Respiratory: decreased breath sounds, rhonchi, No respiratory distress, No accessory muscle use Cardiac/Chest: regular rate, rhythm, No edema, No JVD Abdomen: non-tender, soft, No distended Skin: normal color, warm/dry, No cyanosis Lymphatic: no adenopathy Extremities: No pedal edema Neuro/Psych: no motor/sensory deficits, cognition abnormalities, No abnormal mathematics professor II-XII ICD10 Worksheet Patient Problems: Problems Problem Status Onset Alcohol withdrawal Acute Left lower lobe pneumonia Acute Septic shock Acute Vomiting Acute
[2018-11-14 14:33] LABS: HEPATITIS B SURFACE ANTIGEN NEGATIVE (NEGATIVE)
[2018-11-14 14:39] LABS: HEPATITIS A ANTIBODY IGM (BCH) NEGATIVE (NEGATIVE); HEPATITIS B CORE AB IGM NEGATIVE (NEGATIVE)
[2018-11-14 14:57] LABS: HEPATITIS C ANTIBODY TOTAL NEGATIVE (NEGATIVE)
--- NOTE | 2018-11-14 16:29 | HOSPPROG ---
Hospitalist Progress Note Assessment/Plan: 1. Septic Shock - Indicated by elevated lactate, tachycardia, leukocytosis, hypotension requiring pressors, and source L PNA - S/p 30 cc/kg IVF on admission - Requiring initiation of Levophed and Vasopressin to maintain MAP >65, wean as tolerated - Blood and sputum cultures pending - Started on Ceftriaxone/Azithromycin/Flagyl on admission, will continue for now pending culture data 2. Acute Hypoxic Respiratory Failure - RR 40-50's soon after admission requiring intubation, in setting of heavy alcohol use/withdrawal - CXR showing L sided PNA on CT, likely aspiration given hx - Wean vent as tolerated, management per pulm 3. ETOH Withdrawal - Reported drinking 2L Vodka daily - Initiated on scheduled Ativan and precedex on admission, continue for now - Plan to wean precedex as tolerated 4. Transaminitis - AST 619, ALT 209, T Bili 1.3 on admission - In setting of heavy alcohol use as above - Continue to monitor, may be component of shock liver as well 5. Hypovolemic Hyponatremia - S/p IV on admission - Na 137 this AM, continue to monitor FEN: IVF, NPO DVT PPx: Lovenox Code: FULL Dispo: Pending clinical course Critical Care time spent on patient care 30 minutes Subjective: Pt intubated and sedated Objective: Vital Signs Temp Pulse Resp BP Pulse Ox 37.2 C 82 22 H 89/64 L 99 11/14/18 16:00 11/14/18 16:00 11/14/18 16:00 11/14/18 16:00 11/14/18 16:00 Microbiology 11/12/18 20:25 - Final Sputum, Expectorated Laboratory Results 11/14/18 04:10 11/14/18 13:00 11/13/18 11/14/18 11/15/18 05:59 05:59 05:59 Intake Total 4493 3461 Output Total 2825 1350 Balance 1668 2111 PT 15.2 SEC (12.0-15.0) H 11/12/18 17:45 INR 1.25 (0.83-1.16) H 11/12/18 17:45 - Physical Exam Constitutional: chronically ill appearing Eyes: PERRL Ears, Nose, Mouth, Throat: dry mucous membranes (ETT in place) Cardiovascular: regular rate and rhythym Respiratory: bronchial breath sounds, rhonchi Gastrointestinal: soft, non-tender abdomen Genitourinary: andres in urethra Skin: warm Neurologic: No AAOx3 Psychiatric: No interacting appropriately (Sedated) ICD10 Worksheet Patient Problems: Problems Problem Status Onset Alcohol withdrawal Acute Left lower lobe pneumonia Acute Septic shock Acute Vomiting Acute
--- NOTE | 2018-11-14 16:37 | ASMTCMCOM ---
CM Note CM Note Notes: In attempt to start searching for possible medically proxy, CM reached out to [facility]. Pt was last seen there in Aug 2018 but they have no record of an emergency contact. Mother listed as contact in chart and had a disconnected number. Pt is potentially apart of the [facility], Pablo at [facility] will do some research and follow up with CM. Ethics consulted on 11/13 to assist with search. Will need to contact with ethics on next steps. Plan: TBD Date Signed: 11/14/2018 04:36 PM Electronically Signed By:Anabela Bernstein
[2018-11-14] MEDS: AZITHROMYCIN IV 250 MG in D5W 250 ML IV SCH (17:03)
[2018-11-15] MEDS: LORazepam 2 MG/ML INJ IVP SCH ×4 (00:09→17:54)
[2018-11-15] MEDS: PROPOFOL/EMULSION 100 ML IV SCH ×2 (02:47→21:04)
[2018-11-15] MEDS: NOREPINEPHRINE BITARTRATE 16 MG in NS 250 ML IV SCH (02:48)
[2018-11-15 05:08] LABS: PLATELET COUNT 140 10^3/uL (150-400)
[2018-11-15] MEDS ORDERED: MAGNESIUM SULF 1 GM/DEXTROSE 100 ML IV ONE (07:32)
[2018-11-15] MEDS: POTASSIUM Cl (KCl) 50 ML IV SCH ×6 (07:47→17:16)
[2018-11-15] MEDS: VASOPRESSIN 25 UNIT in D5W 250 ML IV SCH (07:49)
[2018-11-15] MEDS: FAMOTIDINE 20 MG/NACL 50 ML IV SCH ×2 (08:27→20:37)
[2018-11-15] MEDS: NICOTINE 21 MG/24 HR PATCH TD SCH (08:27)
[2018-11-15] MEDS: CHLORHEXIDINE GLUCONATE 15 ML UDL PO SCH ×2 (08:27→20:39)
[2018-11-15] MEDS: THIAMINE HCL 500 MG in NS 100 ML IV SCH (08:27)
[2018-11-15] MEDS: ENOXAPARIN 40 MG/0.4 ML SYR SC SCH (08:27)
--- NOTE | 2018-11-15 11:16 | PDINTPN ---
Corporate Human Resources Manager Progress Note Assessment/Plan: 38 M with history of alcoholism admitted 11/12 with severe pna and etoh withdrawal. He was treated with antibiotics and CIWA protocol but developed severe dyspnea and required emergent intubation late 11/12. He was difficult to sedate and required precedex, propofol, fentanyl and 6 hr ativan. He dropped his BP early 11/13 and required levophed, but this was titrated down rapidly with reduction in sedation medication. * Pneumonia- some history suggests aspiration, but likely severe CAP. Currently treated with CTX, zithromax, while flagyl dc'd 11/15. Cultures NTD. Fever has resolved, wbc falling * acute respiratory failure with hypoxia and vent management 08/17 PNA- minimal vent support with adequate ventilation. Stable CXR. Weaning trial 11/14 didn't produce much, so retry today * hypotension- resolved and off pressors * Non-gap metabolic acidosis likely from high volume NS given rise in chloride. Observe * ETOH wd- continue scheduled ativan. Precedex dc'd * Transaminitis- likely shock liver, but hep serologies negative. Improved today * FEN- started TF. * * critical care time 65 minutes 11/14/18 12:46 11/15/18 11:13 Subjective: no events; improved overnight Objective: Vital Signs Temp Pulse Resp BP Pulse Ox 37.6 C 99 22 H 114/74 96 11/15/18 10:00 11/15/18 10:00 11/15/18 10:00 11/15/18 10:00 11/15/18 10:00 Microbiology 11/12/18 20:25 - Final Sputum, Expectorated Laboratory Results 11/15/18 04:40 11/15/18 04:40 11/14/18 11/15/18 11/16/18 05:59 05:59 05:59 Intake Total 3461 3600 Output Total 1350 1050 Balance 2111 2550 PT 15.2 SEC (12.0-15.0) H 11/12/18 17:45 INR 1.25 (0.83-1.16) H 11/12/18 17:45 Physical Exam - Physical Exam General Appearance: no apparent distress, obtunded EENT: PERRL/EOMI, ET tube, No scleral icterus (R), No scleral icterus (L) Neck: supple Respiratory: decreased breath sounds, rhonchi, No respiratory distress, No accessory muscle use Cardiac/Chest: regular rate, rhythm, No edema, No JVD Abdomen: non-tender, soft, No distended Skin: normal color, warm/dry, No cyanosis Lymphatic: no adenopathy Extremities: No pedal edema Neuro/Psych: cognition abnormalities ICD10 Worksheet Patient Problems: Problems Problem Status Onset Alcohol withdrawal Acute Left lower lobe pneumonia Acute Septic shock Acute Vomiting Acute
--- NOTE | 2018-11-15 11:36 | ASMTCMCOM ---
CM Note CM Note Notes: CM has been unsuccessful in the search to obtain a Medical Proxy. Spoke with Pablo at the [facility], # for mother provided, however, # no longer in use. As noted yesterday, [facility] does not have an emergency contact listed. CM also attempted to search [employer] website, no documentation of this patient in the portal. Consulted with Martha Swanson. At this time, Ethics will continue to follow this case with us. If a medical decision needs to be made, perhaps we will need to visit possible MD proxy option. Patient continues to remain critically ill, CM will follow. Plan: TBD Date Signed: 11/15/2018 11:35 AM Electronically Signed By:Kristy Negrete RN
--- NOTE | 2018-11-15 11:57 | HOSPPROG ---
Hospitalist Progress Note Assessment/Plan: DIAGNOSES: * Acute hypoxemic and hypercarbic respiratory failure requiring mechanical ventilation -failed attempt at CPAP weaning today with immediate onset of market tachypnea tachycardia, respiratory rates to 60 * Acute community-acquired pneumonia * Acute septic shock requiring pressor support * Acute alcohol withdrawal requiring ongoing sedation medication and seizure prophylaxis * Acute alcoholic hepatitis AST 600s * Hypovolemic hyponatremia * Suspected thiamine deficiency * Alcoholism PLANS: * Continue intensive care management of above problems * Continue mechanical ventilation with hygiene support * Continue current antibiotics * Continue sedation guided by CIWA scores * Continue thiamin replacement * DVT prophylaxis Seen by me today on hospitals rounds with small as multidisciplinary ICU rounds I reviewed with Dr. 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: Sinus tachycardia Exam: During CPAP wean the patient was able to follow command to raise his thumbs when asked, otherwise even with sedation vacation for CPAP wean he is lying in bed with his eyes rolled up does not look at me when I request that he look at me; adequately sedated when on medications skin warm dry color ok resps very labored and rapid during CPAP wean attempt, breathes easily by ventilator when sedated lungs extremely coarse and bronchitic BSs heart regular tachycardic abd soft nondistended, bowel sounds present limbs warm, no edema iv site ok Laboratory data: White count remains elevated 11,000 Stable hemoglobin Platelets remain slightly low but stable Potassium 3.3 otherwise unremarkable basic met panel AST remains elevated greater than 500 bilirubin normal, ALT 342 Objective: Vital Signs Temp Pulse Resp BP Pulse Ox 37.7 C 111 H 30 H 107/69 97 11/15/18 11:00 11/15/18 11:00 11/15/18 11:00 11/15/18 11:00 11/15/18 11:00 Microbiology 11/12/18 20:25 - Final Sputum, Expectorated Sputum Culture - Final Laboratory Results 11/15/18 04:40 11/15/18 04:40 11/14/18 11/15/18 11/16/18 06:59 06:59 06:59 Intake Total 3461 3600 Output Total 1350 1050 Balance 2111 2550 PT 15.2 SEC (12.0-15.0) H 11/12/18 17:45 INR 1.25 (0.83-1.16) H 11/12/18 17:45 - Time Spent With Patient Time Spent with Patient: greater than 35 minutes Time Spent with Patient: Greater than 35 minutes spent on this patients care, greater than 50% of time spent counseling, educating, and coordinating care regarding the above mentioned plan. ICD10 Worksheet Patient Problems: Problems Problem Status Onset Alcohol withdrawal Acute Left lower lobe pneumonia Acute Septic shock Acute Vomiting Acute
[2018-11-15] MEDS ORDERED: K PHOS 20 MMOL in D5W 250 ML IV ONE (12:00)
[2018-11-15] MEDS: AZITHROMYCIN IV 250 MG in D5W 250 ML IV SCH (17:54)
[2018-11-15] MEDS: THIAMINE HCL 100 MG TAB TUBE SCH (18:10)
[2018-11-15] MEDS: ACETAMINOPHEN 325 MG TAB TUBE PRN (18:13)
[2018-11-15] MEDS ORDERED: POTASSIUM Cl (KCl) 50 ML IV ONE (19:56)
[2018-11-16] MEDS: LORazepam 2 MG/ML INJ IVP SCH ×2 (00:02→05:21)
[2018-11-16] MEDS: PROPOFOL/EMULSION 100 ML IV SCH ×5 (00:58→22:19)
[2018-11-16 04:52] LABS: PLATELET COUNT 151 10^3/uL (150-400)
[2018-11-16] MEDS ORDERED: MAGNESIUM SULF 1 GM/DEXTROSE 100 ML IV ONE (07:03)
[2018-11-16] MEDS: POTASSIUM Cl (KCl) 50 ML IV SCH ×5 (07:32→22:16)
[2018-11-16] MEDS: FAMOTIDINE 20 MG/NACL 50 ML IV SCH ×2 (08:14→20:48)
[2018-11-16] MEDS: ENOXAPARIN 40 MG/0.4 ML SYR SC SCH (08:14)
[2018-11-16] MEDS: THIAMINE HCL 100 MG TAB TUBE SCH (08:14)
[2018-11-16] MEDS: CHLORHEXIDINE GLUCONATE 15 ML UDL PO SCH ×2 (08:14→21:00)
[2018-11-16] MEDS: NICOTINE 21 MG/24 HR PATCH TD SCH (08:15)
[2018-11-16] MEDS ORDERED: LORazepam 2 MG/ML INJ IV PRN (11:38)
[2018-11-16] MEDS ORDERED: K PHOS 20 MMOL in D5W 250 ML IV ONE (12:00)
--- NOTE | 2018-11-16 12:08 | HOSPPROG ---
Hospitalist Progress Note Assessment/Plan: DIAGNOSES: * Acute hypoxemic and hypercarbic respiratory failure requiring ongoing mechanical ventilation -failed attempt at CPAP weaning today again * Acute community-acquired pneumonia w Pneumococcus * Acute septic shock requiring pressor support - now off pressor * Acute alcohol withdrawal requiring ongoing sedation medication and seizure prophylaxis * Acute alcoholic hepatitis AST 600s * Hypovolemic hyponatremia * Suspected thiamine deficiency * Alcoholism PLANS: * Continue intensive care management of above problems * Continue mechanical ventilation with hygiene support * repeat CXR in am * Continue current antibiotics * Continue sedation guided by CIWA scores * Continue thiamin replacement * DVT prophylaxis * repeat liver panel in am Seen by me today on hospitals rounds with small as multidisciplinary ICU rounds I reviewed with Dr. 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: Sinus tachycardia Exam: sedated, not currently respoding due to that skin warm dry color ok resps per vent lungs notably improved today heart regular tachycardic abd soft nondistended, bowel sounds present limbs warm, minimal edema iv site ok Laboratory data: wbc imparoved but still up at 11 Hg stable lytes ok Microbiology: Urine + for Strep pneumonia antigen cultures otherwise negative Objective: Vital Signs Temp Pulse Resp BP Pulse Ox 36.7 C 111 H 22 H 117/76 95 11/16/18 09:00 11/16/18 11:00 11/16/18 11:00 11/16/18 11:00 11/16/18 11:00 Microbiology 11/12/18 20:25 - Final Sputum, Expectorated Sputum Culture - Final Laboratory Results 11/16/18 04:30 11/16/18 04:30 11/15/18 11/16/18 11/17/18 06:59 06:59 06:59 Intake Total 3600 2990.2 Output Total 1050 4900 800 Balance 2550 -1909.8 -800 PT 15.2 SEC (12.0-15.0) H 11/12/18 17:45 INR 1.25 (0.83-1.16) H 11/12/18 17:45 ICD10 Worksheet Patient Problems: Problems Problem Status Onset Alcohol withdrawal Acute Left lower lobe pneumonia Acute Septic shock Acute Vomiting Acute
[2018-11-16] MEDS ORDERED: MAGNESIUM HYDROXIDE 30 ML UDCUP PO PRN (13:00)
[2018-11-16] MEDS ORDERED: POLYETHYLENE GLYCOL 3350 17 GM PKT PO PRN (13:00)
[2018-11-16] MEDS ORDERED: BISACODYL 10 MG SUPP PR PRN (13:00)
[2018-11-16] MEDS ORDERED: LACTULOSE 20 GM/30 ML UDCUP PO PRN (13:00)
--- NOTE | 2018-11-16 15:33 | PDINTPN ---
Journal Entry Audit Clerk Progress Note Assessment/Plan: 38 M with history of alcoholism admitted 11/12 with severe pna and etoh withdrawal. He was treated with antibiotics and CIWA protocol but developed severe dyspnea and required emergent intubation late 11/12. He was difficult to sedate and required precedex, propofol, fentanyl and 6 hr ativan. He dropped his BP early 11/13 and required levophed, but this was titrated down rapidly with reduction in sedation medication. * Pneumonia- some history suggests aspiration, but likely severe CAP. Currently treated with CTX, zithromax, while flagyl dc'd 11/15. Cultures NTD. Fever has resolved, wbc falling and now normal. Finish zithro 5 days and continue CTX. Vent day#4 * acute respiratory failure with hypoxia and vent management 2/2 PNA- minimal vent support with adequate ventilation. Stable CXR. Continue daily weaning trials * hypotension- resolved and off pressors * Non-gap metabolic acidosis likely from high volume NS given rise in chloride. Observe * ETOH wd- HD#5- may be resolving change scheduled ativan to prn. * Transaminitis- likely shock liver, but hep serologies negative. Improved today * FEN- started TF. * * critical care time 35 minutes Subjective: no events Objective: Vital Signs Temp Pulse Resp BP Pulse Ox 38.2 C 111 H 20 133/93 H 96 11/16/18 14:00 11/16/18 14:00 11/16/18 14:00 11/16/18 14:00 11/16/18 14:00 Microbiology 11/12/18 20:25 - Final Sputum, Expectorated Sputum Culture - Final Laboratory Results 11/16/18 04:30 11/16/18 04:30 11/15/18 11/16/18 11/17/18 05:59 05:59 05:59 Intake Total 3600 2990.2 Output Total 1050 4900 800 Balance 2550 -1909.8 -800 PT 15.2 SEC (12.0-15.0) H 11/12/18 17:45 INR 1.25 (0.83-1.16) H 11/12/18 17:45 Physical Exam - Physical Exam General Appearance: no apparent distress, obtunded EENT: PERRL/EOMI, ET tube Neck: supple Respiratory: decreased breath sounds, rhonchi (left), No respiratory distress, No accessory muscle use, No wheezing Cardiac/Chest: regular rate, rhythm, No edema, No JVD Abdomen: non-tender, soft, No distended Skin: normal color, warm/dry, No cyanosis Lymphatic: no adenopathy Extremities: No pedal edema Neuro/Psych: cognition abnormalities, 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
[2018-11-16] MEDS: AZITHROMYCIN IV 250 MG in D5W 250 ML IV SCH (17:53)
[2018-11-16] MEDS: SENNOSIDES 17.6 MG/10 ML UDL - IF LIQUID ORDERED PO SCH (20:48)
[2018-11-17] MEDS: PROPOFOL/EMULSION 100 ML IV SCH ×5 (01:49→22:12)
[2018-11-17 05:13] LABS: PLATELET COUNT 212 10^3/uL (150-400)
[2018-11-17] MEDS ORDERED: POTASSIUM Cl (KCl) 50 ML IV ONE ×2 (07:17→18:32)
[2018-11-17] MEDS ORDERED: MAGNESIUM SULF 1 GM/DEXTROSE 100 ML IV ONE (07:48)
[2018-11-17] MEDS: NICOTINE 21 MG/24 HR PATCH TD SCH (08:23)
[2018-11-17] MEDS: ENOXAPARIN 40 MG/0.4 ML SYR SC SCH (08:24)
[2018-11-17] MEDS: THIAMINE HCL 100 MG TAB TUBE SCH (09:14)
[2018-11-17] MEDS: FAMOTIDINE 20 MG/NACL 50 ML IV SCH ×2 (09:15→19:36)
[2018-11-17] MEDS: CHLORHEXIDINE GLUCONATE 15 ML UDL PO SCH ×2 (09:23→20:30)
[2018-11-17] MEDS: SENNOSIDES 17.6 MG/10 ML UDL - IF LIQUID ORDERED PO SCH ×2 (09:26→19:41)
[2018-11-17] MEDS: fentaNYL/NACL 100 ML IV SCH (10:18)
[2018-11-17] MEDS ORDERED: LIDOCAINE 1% 300 MG/30 ML SDV MISC ONE (11:15)
[2018-11-17] MEDS ORDERED: K PHOS 20 MMOL in D5W 250 ML IV ONE (12:00)
--- NOTE | 2018-11-17 12:04 | PDINTPN ---
Roads Supervisor Progress Note Assessment/Plan: 38 M with history of alcoholism admitted 11/12 with severe pna and etoh withdrawal. He was treated with antibiotics and CIWA protocol but developed severe dyspnea and required emergent intubation late 11/12. He was difficult to sedate and required precedex, propofol, fentanyl and 6 hr ativan. He dropped his BP early 11/13 and required levophed, but this was titrated down rapidly with reduction in sedation medication. * Pneumonia- some history suggests aspiration, but likely severe CAP. Currently treated with CTX, zithromax, while flagyl dc'd 11/15. Cultures NTD. Fever has resolved, wbc falling and now normal. Finish zithro 5 days and continue CTX. * acute respiratory failure with hypoxia and vent management 08/17 PNA- minimal vent support with adequate ventilation. Stable CXR. Vent day#5. Because of significant secretions will bronnch today to evaluate. No family available for consent but medically necessary. * hypotension- resolved and off pressors * Non-gap metabolic acidosis likely from high volume NS given rise in chloride. Resolved * ETOH wd- HD#6- chanhged ativan to prn, but may be inadequate. Resume scheduled dose, resume precedex if necessary. * Transaminitis- likely shock liver, but hep serologies negative. Improved today * FEN- started TF. * * critical care time 35 minutes 11/17/18 12:00 Subjective: no events overnight; seemingly more aroused this am with decreased propofol Objective: Vital Signs Temp Pulse Resp BP Pulse Ox 37.7 C 104 H 20 146/90 H 94 11/17/18 08:00 11/17/18 10:00 11/17/18 10:00 11/17/18 10:00 11/17/18 10:00 Laboratory Results 11/17/18 04:45 11/17/18 04:45 11/16/18 11/17/18 11/18/18 05:59 05:59 05:59 Intake Total 2990.2 3786 74.4 Output Total 4900 2950 500 Balance -1909.8 836 -425.6 PT 15.2 SEC (12.0-15.0) H 11/12/18 17:45 INR 1.25 (0.83-1.16) H 11/12/18 17:45 Physical Exam - Physical Exam General Appearance: mild distress, other (follows commands somewhat/re- directable) EENT: PERRL/EOMI Neck: supple Respiratory: rhonchi, No respiratory distress, No accessory muscle use Cardiac/Chest: regular rate, rhythm, No edema, No JVD Abdomen: non-tender, soft, No distended Skin: normal color, warm/dry, No cyanosis Lymphatic: no adenopathy Extremities: No pedal edema Neuro/Psych: alert, cognition abnormalities, No abnormal manuscript reader II-XII ICD10 Worksheet Patient Problems: Problems Problem Status Onset Alcohol withdrawal Acute Left lower lobe pneumonia Acute Septic shock Acute Vomiting Acute
[2018-11-17] MEDS: LORazepam 2 MG/ML INJ IVP PRN ×2 (13:08→17:19)
--- NOTE | 2018-11-17 16:00 | HOSPPROG ---
Hospitalist Progress Note Assessment/Plan: DIAGNOSES: * Acute hypoxemic and hypercarbic respiratory failure requiring ongoing mechanical ventilation -failed attempt at CPAP weaning today again * Acute community-acquired pneumonia w Pneumococcus * Acute septic shock requiring pressor support - now off pressor * Acute alcohol withdrawal requiring ongoing sedation medication and seizure prophylaxis * Acute alcoholic hepatitis AST 600s * Hypovolemic hyponatremia * Suspected thiamine deficiency * Alcoholism PLANS: * Continue intensive care management of above problems * Continue mechanical ventilation with hygiene support * repeat CXR in am * Recheck cell counts and renal function in the morning * Continue current antibiotics * Continue sedation guided by CIWA scores * Continue thiamin replacement * DVT prophylaxis Seen by me today on hospitals rounds with small as multidisciplinary ICU rounds I reviewed with Dr. 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: Sinus tachycardia Exam: Remains on mechanical ventilator and is tolerating that okay, ET tube secured in good position sedated, not currently responding due to that skin warm dry color ok resps per vent lungs clear heart regular tachycardic abd soft nondistended, bowel sounds present limbs warm, now edema iv site ok Laboratory data: Stable CBC Electrolytes in good range Microbiology: Urine + for Strep pneumonia antigen cultures otherwise negative Objective: Vital Signs Temp Pulse Resp BP Pulse Ox 37.6 C 101 H 22 H 123/79 H 100 11/17/18 12:00 11/17/18 14:15 11/17/18 14:15 11/17/18 14:00 11/17/18 14:15 Laboratory Results 11/17/18 04:45 11/17/18 12:30 11/16/18 11/17/18 11/18/18 06:59 06:59 06:59 Intake Total 2990.2 3786 74.4 Output Total 4900 2950 1000 Balance -1909.8 836 -925.6 PT 15.2 SEC (12.0-15.0) H 11/12/18 17:45 INR 1.25 (0.83-1.16) H 11/12/18 17:45 ICD10 Worksheet Patient Problems: Problems Problem Status Onset Alcohol withdrawal Acute Left lower lobe pneumonia Acute Septic shock Acute Vomiting Acute
--- NOTE | 2018-11-17 16:36 | ASMTCMCOM ---
CM Note CM Note Notes: Patient has acute hypoxic and hypercarbic respiratory failure requiring ongoing mechanical ventilation. Attempts at CPAP weaning failed again today. Patient remains critically ill. Ethics following due to no family being located other than a number for his mother that is no longer in service. MD proxy option available through Ethics.CM will follow. Date Signed: 11/17/2018 04:35 PM Electronically Signed By:Felicita Lisa LCSW
--- NOTE | 2018-11-17 17:45 | GPN ---
[f rep st] PROCEDURE NOTE DATE OF PROCEDURE: 11/17/2018 PROCEDURE: Bronchoscopy. INDICATION: Excess secretions on a ventilated patient. CONSENT: Waived due to the medical necessity of the procedure, but no family is available for inform ed consent despite multiple efforts. ANESTHESIA: Conscious sedation was achieved using an existing propofol drip, as well as topical lido milagro. The patient tolerated these well without complications. DESCRIPTION OF PROCEDURE: The bronchoscope was passed easily through the existing endotracheal tube which revealed that the tube itself had been inadvertently advanced to near the tip of the rosamaria. T here was inspection of all of the major lobes including right upper lobe, right lower lobes, right mi ddle lobe, left lower lobe, lingula, and left upper lobe, none of which revealed any significant secr etions. The mucosa was also normal and the rosamaria was sharp. Specimens were collected, sent for AFB , fungal and routine cultures. The patient tolerated this well without complications. We will repos ition the endotracheal tube. /[id number]/MODL
[2018-11-17] MEDS ORDERED: LORazepam 2 MG/ML INJ IVP PRN (17:47)
[2018-11-17] MEDS ORDERED: LORazepam 2 MG/ML INJ IVP SCH (18:00)
[2018-11-17] MEDS: DEXMEDETOMIDINE HCL 400 MCG in NS 100 ML IV SCH ×2 (18:08→22:58)
[2018-11-17] MEDS: ACETAMINOPHEN 325 MG TAB TUBE PRN (19:37)
[2018-11-17] MEDS: LORazepam 2 MG/ML INJ IVP SCH (22:12)
[2018-11-18] MEDS: LORazepam 2 MG/ML INJ IVP SCH ×4 (02:15→14:36)
[2018-11-18 05:05] LABS: PLATELET COUNT 255 10^3/uL (150-400)
[2018-11-18] MEDS ORDERED: CALCIUM GLUCONATE 50 ML IV ONE ×2 (05:17→07:49)
[2018-11-18] MEDS: POTASSIUM Cl (KCl) 50 ML IV SCH ×3 (05:39→05:43)
[2018-11-18] MEDS: ACETAMINOPHEN 325 MG TAB TUBE PRN (05:43)
[2018-11-18] MEDS: PROPOFOL/EMULSION 100 ML IV SCH (06:57)
[2018-11-18] MEDS: DEXMEDETOMIDINE HCL 400 MCG in NS 100 ML IV SCH ×2 (06:59→15:50)
[2018-11-18] MEDS: NICOTINE 21 MG/24 HR PATCH TD SCH (08:11)
[2018-11-18] MEDS: ENOXAPARIN 40 MG/0.4 ML SYR SC SCH (08:12)
[2018-11-18] MEDS: CHLORHEXIDINE GLUCONATE 15 ML UDL PO SCH (08:12)
[2018-11-18] MEDS: THIAMINE HCL 100 MG TAB TUBE SCH (08:13)
[2018-11-18] MEDS: FAMOTIDINE 20 MG/NACL 50 ML IV SCH ×2 (08:32→21:07)
[2018-11-18] MEDS: SENNOSIDES 17.6 MG/10 ML UDL - IF LIQUID ORDERED PO SCH ×2 (09:41→23:33)
[2018-11-18] MEDS ORDERED: POLYETHYLENE GLYCOL 3350 17 GM PKT TUBE PRN (12:00)
[2018-11-18] MEDS ORDERED: MAGNESIUM HYDROXIDE 30 ML UDCUP TUBE PRN (12:00)
--- NOTE | 2018-11-18 12:19 | ASMTCMCOM ---
CM Note CM Note Notes: Pt continues to remain on vent. Dr. Adonay Logan is assigned MD Proxy and should be contacted at [phone] if any decisions need to be made. CM to follow. Date Signed: 11/18/2018 12:18 PM Electronically Signed By:STACEY Angel
[2018-11-18] MEDS ORDERED: POTASSIUM Cl (KCl) 50 ML IV ONE (14:16)
--- NOTE | 2018-11-18 15:03 | PDINTPN ---
Continuous Dryout Operator Progress Note Assessment/Plan: Assessment: 38 M with history of alcoholism admitted 11/12 with severe pna and etoh withdrawal. He was treated with antibiotics and CIWA protocol but developed severe dyspnea and required emergent intubation late 11/12. He was difficult to sedate and required precedex, propofol, fentanyl and 6 hr ativan. He dropped his BP early 11/13 and required levophed, but this was titrated down rapidly with reduction in sedation medication. * Pneumonia- some history suggests aspiration, but likely severe CAP. Currently treated with CTX, zithromax, while flagyl dc'd 11/15. Cultures NTD. Fever has resolved, wbc falling and now normal. Finish azithro 5 days and continue CTX. * acute respiratory failure with hypoxia and vent management / PNA- minimal vent support with adequate ventilation. Stable CXR. Vent day#5. Because of significant secretions will bronnch today to evaluate. No family available for consent but medically necessary. * hypotension- resolved and off pressors * Non-gap metabolic acidosis likely from high volume NS given rise in chloride. Resolved * ETOH wd- HD#6- chanhged ativan to prn, but may be inadequate. Resume scheduled dose, resume precedex if necessary. * Transaminitis- likely shock liver, but hep serologies negative. Improved today * FEN- started TF. Plan: 11/18/18 14:55 Subjective: Intubated, sedated Objective: Vital Signs Temp Pulse Resp BP Pulse Ox 36.5 C 84 27 H 111/63 98 11/18/18 12:00 11/18/18 14:00 11/18/18 14:00 11/18/18 14:00 11/18/18 14:00 Microbiology 11/17/18 15:30 Mycobacterial Smear (NAEEM) - Final Bronchial Washings - Bilateral Lobes 11/17/18 15:30 Gram Stain - Final Bronchial Washing - Bilateral Lobes Laboratory Results 11/18/18 04:55 11/18/18 13:00 11/17/18 11/18/18 11/19/18 05:59 05:59 05:59 Intake Total 3786 3370.4 Output Total 2950 1690 900 Balance 836 1680.4 -900 PT 15.2 SEC (12.0-15.0) H 11/12/18 17:45 INR 1.25 (0.83-1.16) H 11/12/18 17:45 Physical Exam - Physical Exam General Appearance: alert, no apparent distress EENT: normal ENT inspection Neck: normal inspection Respiratory: crackles (left) Cardiac/Chest: regular rate, rhythm, No edema Abdomen: normal bowel sounds, non-tender Skin: normal color, warm/dry Extremities: normal inspection Neuro/Psych: other (agitated with decreased sedation) ICD10 Worksheet Patient Problems: Problems Problem Status Onset Alcohol withdrawal Acute Left lower lobe pneumonia Acute Septic shock Acute Vomiting Acute
[2018-11-18] MEDS ORDERED: ONDANSETRON DISINTEGRATING 4 MG TAB TUBE PRN (16:00)
[2018-11-18] MEDS: NS W/ 20 KCl/L 1,000 ML IV SCH (17:00)
[2018-11-19] MEDS ORDERED: POTASSIUM Cl (KCl) 50 ML IV ONE (01:15)
[2018-11-19] MEDS: DEXMEDETOMIDINE HCL 400 MCG in NS 100 ML IV SCH (04:49)
[2018-11-19] MEDS ORDERED: CALCIUM GLUCONATE 50 ML IV ONE (06:31)
[2018-11-19] MEDS ORDERED: MAGNESIUM SULF 1 GM/DEXTROSE 100 ML IV ONE (06:31)
[2018-11-19 06:33] LABS: PLATELET COUNT 357 10^3/uL (150-400)
[2018-11-19] MEDS: NS W/ 20 KCl/L 1,000 ML IV SCH (08:37)
[2018-11-19] MEDS ORDERED: LORazepam 2 MG/ML INJ IVP SCH (09:00)
[2018-11-19] MEDS: ENOXAPARIN 40 MG/0.4 ML SYR SC SCH (09:48)
[2018-11-19] MEDS: FAMOTIDINE 20 MG/NACL 50 ML IV SCH (09:48)
[2018-11-19] MEDS: NICOTINE 21 MG/24 HR PATCH TD SCH (09:48)
[2018-11-19] MEDS: THIAMINE HCL 100 MG TAB TUBE SCH (09:58)
[2018-11-19] MEDS ORDERED: MAGNESIUM HYDROXIDE 30 ML UDCUP PO PRN (10:00)
[2018-11-19] MEDS ORDERED: POLYETHYLENE GLYCOL 3350 17 GM PKT PO PRN (10:00)
[2018-11-19] MEDS ORDERED: ACETAMINOPHEN 325 MG TAB PO PRN (10:00)
[2018-11-19] MEDS ORDERED: ONDANSETRON DISINTEGRATING 4 MG TAB PO PRN (10:00)
--- NOTE | 2018-11-19 10:29 | HOSPPROG ---
Hospitalist Progress Note Assessment/Plan: DIAGNOSES: * Acute hypoxemic and hypercarbic respiratory failure requiring ongoing mechanical ventilation -now successfully extubated and doing quite well on nasal cannula * Acute community-acquired pneumonia w Pneumococcus * Acute septic shock requiring pressor support - now off pressor * Acute alcohol withdrawal requiring ongoing sedation medication and seizure prophylaxis -doing quite well off Precedex and benzos today * Acute alcoholic hepatitis then complicated by likely shock liver AST 2100 highest, improving * Hypovolemic hyponatremia resolved * Suspected thiamine deficiency * Alcoholism PLANS: * Follow respiratory status closely after extubation * Continue current antibiotics * Continue thiamin replacement * DVT prophylaxis * Physical occupational therapy * Hopefully to [facility] floor tomorrow * I had lengthy discussion with the patient regarding sobriety; he is at this point wanting very much to be sober for life and has asked our social workers for assistance with referral to [facility] Seen by me today on hospitals rounds with small as multidisciplinary ICU rounds I reviewed with Dr. 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 Microbiology: Urine + for Strep pneumonia antigen cultures otherwise negative Objective: Vital Signs Temp Pulse Resp BP Pulse Ox 37 C 92 20 125/75 H 93 11/19/18 08:00 11/19/18 08:00 11/19/18 08:00 11/19/18 08:00 11/19/18 08:00 Microbiology 11/17/18 15:30 Gram Stain - Final Bronchial Washing - Bilateral Lobes 11/17/18 15:30 Mycobacterial Smear (NAEEM) - Final Bronchial Washings - Bilateral Lobes Laboratory Results 11/19/18 06:00 11/19/18 04:15 11/18/18 11/19/18 11/20/18 06:59 06:59 06:59 Intake Total 3370.4 2323.6 Output Total 1690 3920 Balance 1680.4 -1596.4 PT 15.2 SEC (12.0-15.0) H 11/12/18 17:45 INR 1.25 (0.83-1.16) H 11/12/18 17:45 - Time Spent With Patient Time Spent with Patient: greater than 35 minutes Time Spent with Patient: Greater than 35 minutes spent on this patients care, greater than 50% of time spent counseling, educating, and coordinating care regarding the above mentioned plan. ICD10 Worksheet Patient Problems: Problems Problem Status Onset Alcohol withdrawal Acute Left lower lobe pneumonia Acute Septic shock Acute Vomiting Acute
[2018-11-19] MEDS: THIAMINE HCL 100 MG TAB PO SCH (11:38)
[2018-11-19] MEDS: SENNOSIDES 17.6 MG/10 ML UDL - IF LIQUID ORDERED PO SCH ×2 (11:40→21:38)
--- NOTE | 2018-11-19 13:24 | PDINTPN ---
Tap Builder Progress Note Assessment/Plan: Assessment: 38 M with history of alcoholism admitted 11/12 with severe pna and etoh withdrawal. He was treated with antibiotics and CIWA protocol but developed severe dyspnea and required emergent intubation late 11/12. He was difficult to sedate and required precedex, propofol, fentanyl and 6 hr ativan. He dropped his BP early 11/13 and required levophed, but this was titrated down rapidly with reduction in sedation medication. * Pneumonia- some history suggests aspiration, but likely severe CAP. Currently treated with CTX. Cultures NTD. Fever has resolved, wbc just mildly elevated. * acute respiratory failure with hypoxia and vent management 08/17 PNA- minimal vent support with adequate ventilation. Stable CXR. Extubated 11/18, now just on nasal cannula. * hypotension- resolved and off pressors * Non-gap metabolic acidosis likely from high volume NS given rise in chloride. Resolved * ETOH wd- HD#8- Minimal symptoms. * Transaminitis- likely shock liver, but hep serologies negative. Improved today * FEN- starting PO * Tachycardia: Sinus. Likely due to pneumonia, postural, medication withdrawal Plan: D/C withdrawal meds and observe. Give some IVF. Transfer to SDU. 11/19/18 13:33 Subjective: Feels better. Able to walk, but still quite weak. Appetite increasing, able to take some p.o. Today. He denies symptoms of alcohol withdrawal. Objective: Vital Signs Temp Pulse Resp BP Pulse Ox 37.4 C 116 H 24 H 109/74 94 11/19/18 12:00 11/19/18 12:00 11/19/18 12:00 11/19/18 12:00 11/19/18 12:00 Microbiology 11/17/18 15:30 Mycobacterial Smear (NAEEM) - Final Bronchial Washings - Bilateral Lobes 11/17/18 15:30 Gram Stain - Final Bronchial Washing - Bilateral Lobes Laboratory Results 11/19/18 06:00 11/19/18 04:15 11/18/18 11/19/18 11/20/18 05:59 05:59 05:59 Intake Total 3370.4 2323.6 Output Total 1690 3920 Balance 1680.4 -1596.4 PT 15.2 SEC (12.0-15.0) H 11/12/18 17:45 INR 1.25 (0.83-1.16) H 11/12/18 17:45 Physical Exam - Physical Exam General Appearance: alert, no apparent distress EENT: normal ENT inspection Neck: normal inspection Respiratory: lungs clear, normal breath sounds Cardiac/Chest: regular rate, rhythm, No edema Abdomen: normal bowel sounds, non-tender Skin: normal color, warm/dry Extremities: normal inspection Neuro/Psych: alert, normal mood/affect, oriented x 3 ICD10 Worksheet Patient Problems: Problems Problem Status Onset Alcohol withdrawal Acute Left lower lobe pneumonia Acute Septic shock Acute Vomiting Acute
[2018-11-19] MEDS ORDERED: PROTOCOL POTASSIUM 1 DOSE MISC PRN (14:37)
--- NOTE | 2018-11-19 16:20 | ASMTCMCOM ---
CM Note CM Note Notes: CM met with pt. He was extubated yesterday and is decisional, Proxy was lifted. 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 Pt reports he lives at [facility] and that he has a CM through [facility], Swetha Oviedo ([phone]). Pt signed LIZABETH for [facility], [facility], and [facility]. CM will collaborate with them for pt's discharge needs. CM completed CAGE. Pt is open to outpatient linkage through [facility] and resources. CM left message for pt's caser in at [facility] requesting outpatient appt. CM to follow. Plan: TBD Date Signed: 11/19/2018 04:16 PM Electronically Signed By:STACEY Angel
[2018-11-19] MEDS ORDERED: CANN-EASE 2 GM TUBE TP PRN (16:31)
[2018-11-19] MEDS: FAMOTIDINE 20 MG TAB PO SCH (21:38)
[2018-11-20 06:59] LABS: PLATELET COUNT 506 10^3/uL (150-400)
[2018-11-20] MEDS: THIAMINE HCL 100 MG TAB PO SCH (08:56)
[2018-11-20] MEDS: NICOTINE 21 MG/24 HR PATCH TD SCH (08:56)
[2018-11-20] MEDS: FAMOTIDINE 20 MG TAB PO SCH ×2 (08:56→20:33)
[2018-11-20] MEDS: ENOXAPARIN 40 MG/0.4 ML SYR SC SCH (08:57)
[2018-11-20] MEDS ORDERED: THIAMINE HCL 100 MG TAB PO SCH (09:00)
[2018-11-20] MEDS: SENNOSIDES 17.6 MG/10 ML UDL - IF LIQUID ORDERED PO SCH ×2 (10:38→20:34)
--- NOTE | 2018-11-20 11:45 | HOSPPROG ---
Hospitalist Progress Note Assessment/Plan: # CAP - slow resolution on CXR - cont rocephin # acute resp failure - extubated, slow improvement # septic shock, resolved, off pressors # etOH hepatitis vs shock liver - much improved - check tomorrow # debility d/t acute illness - PT/OT # thrombocytosis - recheck tomorrow # etOH w/d - resolved - interested in cessation Subjective: breathing still shallow, still coughing Objective: Vital Signs Temp Pulse Resp BP Pulse Ox 36.9 C 87 17 131/88 H 96 11/20/18 08:00 11/20/18 08:00 11/20/18 08:00 11/20/18 08:00 11/20/18 08:00 Microbiology 11/17/18 15:30 Gram Stain - Final Bronchial Washing - Bilateral Lobes Bronchial Culture - Final 11/17/18 15:30 Mycobacterial Smear (NAEEM) - Final Bronchial Washings - Bilateral Lobes Laboratory Results 11/20/18 06:00 11/20/18 06:00 11/19/18 11/20/18 11/21/18 05:59 05:59 05:59 Intake Total 2323.6 650 Output Total 3920 1200 225 Balance -1596.4 -550 -225 PT 15.2 SEC (12.0-15.0) H 11/12/18 17:45 INR 1.25 (0.83-1.16) H 11/12/18 17:45 chart reviewed CXRs personally reviewed - Physical Exam Constitutional: no apparent distress, appears nourished Cardiovascular: regular rate and rhythym, no murmur, rub, or gallop Respiratory: no respiratory distress, other (L sided crackles, diminished L sided BS), No bronchial breath sounds Gastrointestinal: soft, non-tender abdomen, no palpable masses, No guarding, No rebound, No distension ICD10 Worksheet Patient Problems: Problems Problem Status Onset Left lower lobe pneumonia Acute Vomiting Acute Alcohol withdrawal Acute Septic shock Acute
--- NOTE | 2018-11-20 12:56 | PDINTPN ---
Ambulatory Care Progress Note Assessment/Plan: Assessment: 38 M with history of alcoholism admitted 11/12 with severe pna and etoh withdrawal. He was treated with antibiotics and CIWA protocol but developed severe dyspnea and required emergent intubation late 11/12. He was difficult to sedate and required precedex, propofol, fentanyl and 6 hr ativan. He dropped his BP early 11/13 and required levophed, but this was titrated down rapidly with reduction in sedation medication. * Pneumonia- some history suggests aspiration, but likely severe CAP. Currently treated with CTX. Cultures NTD. Fever has resolved, wbc just mildly elevated. * acute respiratory failure with hypoxia and vent management 08/17 PNA- minimal vent support with adequate ventilation. Stable CXR. Extubated 11/18, now just on nasal cannula. * hypotension- resolved and off pressors * Non-gap metabolic acidosis likely from high volume NS given rise in chloride. Resolved * ETOH wd- HD#8- Minimal symptoms. * Transaminitis- likely shock liver, but hep serologies negative. Improved today * FEN- starting PO * Tachycardia: Sinus. Likely due to pneumonia, postural, medication withdrawal Plan: Complete 10 days of ceftriaxone (tomorrow). Okay to transfer to [facility]. 11/20/18 12:55 Subjective: Feels better, strength in appetite improving. Continues to have a productive cough, but denies dyspnea. Objective: Vital Signs Temp Pulse Resp BP Pulse Ox 37.3 C 94 23 H 137/78 H 96 11/20/18 11:45 11/20/18 11:45 11/20/18 11:45 11/20/18 11:45 11/20/18 11:45 Microbiology 11/17/18 15:30 Gram Stain - Final Bronchial Washing - Bilateral Lobes Bronchial Culture - Final 11/17/18 15:30 Mycobacterial Smear (NAEEM) - Final Bronchial Washings - Bilateral Lobes Laboratory Results 11/20/18 06:00 11/20/18 06:00 11/19/18 11/20/18 11/21/18 05:59 05:59 05:59 Intake Total 2323.6 650 Output Total 3920 1200 225 Balance -1596.4 -550 -225 PT 15.2 SEC (12.0-15.0) H 11/12/18 17:45 INR 1.25 (0.83-1.16) H 11/12/18 17:45 Chest x-ray: Marked improvement in dense left-sided infiltrates. Images reviewed by me. Physical Exam - Physical Exam General Appearance: alert, no apparent distress EENT: normal ENT inspection Neck: normal inspection Respiratory: lungs clear, normal breath sounds Cardiac/Chest: regular rate, rhythm, No edema Abdomen: normal bowel sounds, non-tender Skin: normal color, warm/dry Extremities: normal inspection Neuro/Psych: alert, normal mood/affect, oriented x 3 ICD10 Worksheet Patient Problems: Problems Problem Status Onset Alcohol withdrawal Acute Left lower lobe pneumonia Acute Septic shock Acute Vomiting Acute
[2018-11-21 05:28] LABS: PLATELET COUNT 548 10^3/uL (150-400)
[2018-11-21] MEDS: ENOXAPARIN 40 MG/0.4 ML SYR SC SCH (08:03)
[2018-11-21] MEDS: THIAMINE HCL 100 MG TAB PO SCH (08:04)
[2018-11-21] MEDS: FAMOTIDINE 20 MG TAB PO SCH ×2 (08:04→20:11)
[2018-11-21] MEDS: NICOTINE 21 MG/24 HR PATCH TD SCH (08:04)
[2018-11-21] MEDS: SENNOSIDES 17.6 MG/10 ML UDL - IF LIQUID ORDERED PO SCH ×2 (08:27→20:38)
--- NOTE | 2018-11-21 10:44 | HOSPPROG ---
Hospitalist Progress Note Assessment/Plan: # CAP: completed 10 days abx # acute resp failure - extubated, slow improvement # septic shock, resolved, off pressors # EtOH hepatitis vs shock liver -LFTs much improved # debility d/t acute illness - PT/OT # thrombocytosis - still elevated, due to critical illness # etOH w/d - resolved - interested in cessation #Diet: regular Inpatient admission for PT/OT, nebs Subjective: weakness improved. Still productive cough Objective: Vital Signs Temp Pulse Resp BP Pulse Ox 37.1 C 103 H 16 118/74 95 11/21/18 08:27 11/21/18 08:27 11/21/18 08:27 11/21/18 08:27 11/21/18 08:27 Microbiology 11/17/18 15:30 Gram Stain - Final Bronchial Washing - Bilateral Lobes Bronchial Culture - Final 11/17/18 15:30 Mycobacterial Smear (NAEEM) - Final Bronchial Washings - Bilateral Lobes Laboratory Results 11/21/18 04:30 11/21/18 04:30 11/20/18 11/21/18 11/22/18 05:59 05:59 05:59 Intake Total 650 4500 Output Total 1200 225 750 Balance -550 4275 -750 PT 15.2 SEC (12.0-15.0) H 11/12/18 17:45 INR 1.25 (0.83-1.16) H 11/12/18 17:45 - Time Spent With Patient Time Spent with Patient: greater than 35 minutes Time Spent with Patient: Greater than 35 minutes spent on this patients care, greater than 50% of time spent counseling, educating, and coordinating care regarding the above mentioned plan. - Physical Exam Constitutional: no apparent distress Eyes: PERRL Ears, Nose, Mouth, Throat: moist mucous membranes Cardiovascular: regular rate and rhythym Respiratory: rhonchi Gastrointestinal: normoactive bowel sounds Neurologic: AAOx3, CN II-XII Intact Psychiatric: interacting appropriately ICD10 Worksheet Patient Problems: Problems Problem Status Onset Alcohol withdrawal Acute Left lower lobe pneumonia Acute Septic shock Acute Vomiting Acute
--- NOTE | 2018-11-21 13:52 | ASMTCMCOM ---
CM Note CM Note Notes: Pt is living at the [facility]. Pt recommended SNF but OT cleared him at this time. It does not appear that pt is needing a ton of assists at this time with his ADL's. CM to monitor and to follow. Plan: TBD Date Signed: 11/21/2018 01:51 PM Electronically Signed By:Anabela Bernstein
[2018-11-22] MEDS: SENNOSIDES 17.6 MG/10 ML UDL - IF LIQUID ORDERED PO SCH ×2 (10:44→20:47)
[2018-11-22] MEDS: FAMOTIDINE 20 MG TAB PO SCH ×2 (10:45→20:47)
[2018-11-22] MEDS: ENOXAPARIN 40 MG/0.4 ML SYR SC SCH (10:45)
[2018-11-22] MEDS: NICOTINE 21 MG/24 HR PATCH TD SCH (10:45)
[2018-11-22] MEDS: THIAMINE HCL 100 MG TAB PO SCH (10:45)
--- NOTE | 2018-11-22 14:00 | HOSPPROG ---
Hospitalist Progress Note Assessment/Plan: # CAP: completed 10 days abx # acute resp failure - requiring less oxygen. Hope to get off it as will be difficult to prescribe with homelessness -nebs # Septic shock, resolved, off pressors # EtOH hepatitis vs shock liver -LFTs much improved # Deconditioning: improving daily with PT # thrombocytosis - still elevated, due to critical illness # etOH w/d - resolved - interested in cessation #Diet: regular Inpatient admission for PT/OT, nebs Subjective: feeling less weak. Cough improved Objective: Vital Signs Temp Pulse Resp BP Pulse Ox 36.8 C 85 18 117/62 95 11/22/18 11:52 11/22/18 11:52 11/22/18 11:52 11/22/18 11:52 11/22/18 11:52 Microbiology 11/17/18 15:30 Mycobacterial Smear (NAEEM) - Final Bronchial Washings - Bilateral Lobes Laboratory Results 11/21/18 04:30 11/21/18 04:30 11/21/18 11/22/18 11/23/18 05:59 05:59 05:59 Intake Total 4500 5600 900 Output Total 225 2047 475 Balance 4275 3553 425 PT 15.2 SEC (12.0-15.0) H 11/12/18 17:45 INR 1.25 (0.83-1.16) H 11/12/18 17:45 - Physical Exam Constitutional: no apparent distress Eyes: PERRL Ears, Nose, Mouth, Throat: moist mucous membranes Cardiovascular: regular rate and rhythym Respiratory: expiratory wheeze, No rhonchi Gastrointestinal: normoactive bowel sounds Genitourinary: no bladder fullness Skin: warm Musculoskeletal: full muscle strength Neurologic: AAOx3, CN II-XII Intact Psychiatric: interacting appropriately ICD10 Worksheet Patient Problems: Problems Problem Status Onset Alcohol withdrawal Acute Left lower lobe pneumonia Acute Septic shock Acute Vomiting Acute
[2018-11-23] MEDS: NICOTINE 21 MG/24 HR PATCH TD SCH (08:14)
[2018-11-23] MEDS: THIAMINE HCL 100 MG TAB PO SCH (08:14)
[2018-11-23] MEDS: FAMOTIDINE 20 MG TAB PO SCH (08:14)
[2018-11-23] MEDS: ENOXAPARIN 40 MG/0.4 ML SYR SC SCH (08:16)
[2018-11-23] MEDS: SENNOSIDES 17.6 MG/10 ML UDL - IF LIQUID ORDERED PO SCH (08:28)
--- NOTE | 2018-11-23 11:14 | ASDISCHSUM ---
Discharge Information Plan Status:Home with No Needs Medically Cleared to Leave: Discharge Date: CM D/C Disposition:Home, Routine, Self-Care ADT D/C Disposition:Home, Routine, Self-Care Projected Discharge Date: Transportation at D/C: Discharge Delay Reason: Follow-Up Date: Discharge Slot: Final Diagnosis: Placement Information Patient Contact Information Contact Name:ELENO Relationship:Mother Address: Work Phone: City: Alternate Phone: State/One Hour Translation Code: Email: Financial Information Financial Class:Medicaid Primary Plan Desc[place] Primary Plan Number:[id number] Secondary Plan Desc: Secondary Plan Number: Assessment Information LACE LACE Length of stay for Answers: 7-13 days current admission Acuity / Level of Answers: Yes Care: Did the patient have an inpatient admission? # of Emergency department Answers: 1-2 visits in the last 6 months Social determinants Answers: History of substance abuse (ETOH, street drugs, prescription drugs, etc.) Score: 12 Date Signed: 11/23/2018 11:12 AM Electronically Signed By:Anabela Bernstein [facility] Progress Note CM Note CM Note Notes: Pt is a 38 yo M presents with pneumonia, sepsis and etoh withdrawl. History of drinking 2L/ day. History of meth use, last use 2 months ago. Pt is homeless. Pt is currently on [employer]. Ethics consulted to help with Health Care Proxy search. CM to follow. Plan: Needs CAGE once able to engage in conversation Date Signed: 11/13/2018 11:28 AM Electronically Signed By:STACEY Angel [facility] Progress Note CM Note CM Note Notes: In attempt to start searching for possible medically proxy, CM reached out to [facility]'s [facility]. Pt was last seen there in Aug 2018 but they have no record of an emergency contact. Mother listed as contact in chart and had a disconnected number. Pt is potentially apart of the [facility], Pablo at [facility] will do some research and follow up with CM. Ethics consulted on 11/13 to assist with search. Will need to contact with ethics on next steps. Plan: TBD Date Signed: 11/14/2018 04:36 PM Electronically Signed By:Anabela Bernstein [facility] Progress Note CM Note CM Note Notes: CM has been unsuccessful in the search to obtain a Medical Proxy. Spoke with Pablo at the [facility], # for mother provided, however, # no longer in use. As noted yesterday, [facility] does not have an emergency contact listed. CM also attempted to search [employer] website, no documentation of this patient in the portal. Consulted with Brian Logan, Martha. At this time, Ethics will continue to follow this case with us. If a medical decision needs to be made, perhaps we will need to visit possible MD proxy option. Patient continues to remain critically ill, CM will follow. Plan: TBD Date Signed: 11/15/2018 11:35 AM Electronically Signed By:Kristy Negrete RN [facility] CM Progress Note CM Note CM Note Notes: Patient has acute hypoxic and hypercarbic respiratory failure requiring ongoing mechanical ventilation. Attempts at CPAP weaning failed again today. Patient remains critically ill. Ethics following due to no family being located other than a number for his mother that is no longer in service. MD proxy option available through Ethics.CM will follow. Date Signed: 11/17/2018 04:35 PM Electronically Signed By:Felicita Lisa LCSW [facility] CM Progress Note CM Note CM Note Notes: Pt continues to remain on vent. Dr. Adonay Logan is assigned Proxy and should be contacted at [phone] if any decisions need to be made. CM to follow. Date Signed: 11/18/2018 12:18 PM Electronically Signed By:STACEY Angel [facility] CM Progress Note CM Note CM Note Notes: CM met with pt. He was extubated yesterday and is decisional, MD Proxy was lifted. 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 Pt reports he lives at [facility] and that he has a CM through [facility] ([phone]). Pt signed LIZABETH for [facility], [facility]'s [facility], and [facility]. CM will collaborate with them for pt's discharge needs. CM completed CAGE. Pt is open to outpatient linkage through [facility] and resources. CM left message for pt's case fitter at [facility] requesting outpatient appt. CM to follow. Plan: TBD Date Signed: 11/19/2018 04:16 PM Electronically Signed By:STACEY Angel [facility] Progress Note CM Note CM Note Notes: Pt is living at the [facility]. Pt recommended SNF but OT cleared him at this time. It does not appear that pt is needing a ton of assists at this time with his ADL's. CM to monitor and to follow. Plan: TBD Date Signed: 11/21/2018 01:51 PM Electronically Signed By:Anabela Bernstein Case Management Discharge Plan Note Case Management Discharge Discharge Order Complete? Answers: Yes Patient to Obtain Answers: Independently Medications Discharge Comments Notes: CM met with pt. Pt reports that he is going to meet with [facility] on Sunday. Pt is medically stable to discharge. Pt reports that he does not anything at this time. Date Signed: 11/23/2018 11:12 AM Electronically Signed By:Anabela Bernstein Intervention Information Intervention Type:*Incorrect Registration Date of Service:11/12/2018 06:31 PM Patient Type:Observation Staff Member:JENSEN Kemp Courtney Hours: Discipline: Severity: Comment:
[2018-11-23 11:50] VITALS: BP 122/82
--- NOTE | 2018-11-23 12:25 | GDS ---
[f rep st] DISCHARGE SUMMARY DISCHARGE DIAGNOSES: 1. Septic shock. 2. Community-acquired pneumonia. 3. Alcohol dependence. 4. Alcohol withdrawal. 5. Alcohol hepatitis. 6. Thrombocytosis. 7. Deconditioning. 8. Acute hypoxemic respiratory failure. HISTORY OF PRESENT ILLNESS: A 38-year-old male with alcohol dependence who presented with nausea, vo miting, nausea and cough. He had a blood-streaked sputum, fevers, cold sweats. HOSPITAL COURSE BY PROBLEM: 1. Septic shock: Secondary to community-acquired pneumonia, required pressors and IV antibiotics. He completed a course of 10 days antibiotics. 2. Tachycardia, due to dehydration and alcohol withdrawal, resolved. 3. Alcohol dependence. He was counseled on cessation. He states he wants to quit. 4. Hypovolemic hyponatremia, resolved. 5. Metabolic anion gap acidosis: Secondary to alcohol/starvation ketoacidosis, resolved. 6. JANE, resolved. 7. Acute hypoxemic respiratory failure: Required intubation due to alcohol withdrawal and pneumonia . He is now stable on room air. 8. Deconditioning. He has been cleared by Physical Therapy. DISPOSITION: The patient is stable for discharge. PHYSICAL EXAMINATION: VITAL SIGNS: Today, temperature 36.3, blood pressure 110/63, heart rate is in 90s, respirations 15, 92% on room air. GENERAL: No acute distress. HEENT: PERRLA. Moist mucous membranes. CV: Regular rate and rhythm. LUNGS: Diminished with a few rhonchi, but much improved. ABDOMEN: Soft, nontender. : No Wynn. MUSCULOSKELETAL: 5/5 upper and lower extremity strength. NEURO: 2 through 12 intact. PSYCH: Alert and oriented x3. TIME SPENT ON DISCHARGE: Greater than 30 minutes at bedside counseling patient on alcohol cessation and coordinating discharge. /[id number]/MODL
== END 2018-11-23 12:59 | disposition home or self-care (01) | DRG 720 ==
LOC: EDUNIT# → OBSVTOIN 18:19 → F2N 19:37 → F1N 11-20 13:03
PROVIDERS: ADMIT Internal Medicine; ATTEND Internal Medicine
PROC: 0BH17EZ Insertion of Endotracheal Airway into Trachea, Via Natural or Artificial Opening (ICD-10-PCS; principal; 2018-11-13)
PROC: 5A1955Z Respiratory Ventilation, Greater than 96 Consecutive Hours (ICD-10-PCS; principal; 2018-11-13)
PROC: 02HV33Z Insertion of Infusion Device into Superior Vena Cava, Percutaneous Approach (ICD-10-PCS; 2018-11-13)
PROC: 0BJK8ZZ Inspection of Right Lung, Via Natural or Artificial Opening Endoscopic (ICD-10-PCS; 2018-11-17)
PROC: 0BJL8ZZ Inspection of Left Lung, Via Natural or Artificial Opening Endoscopic (ICD-10-PCS; 2018-11-17)
PROC: 3E1F88X Irrigation of Respiratory Tract using Irrigating Substance, Via Natural or Artificial Opening Endoscopic, Diagnostic (ICD-10-PCS; 2018-11-17)
DX: A41.9 Sepsis, unspecified organism (principal); J13 Pneumonia due to Streptococcus pneumoniae; R65.21 Severe sepsis with septic shock; J96.01 Acute respiratory failure with hypoxia; N17.9 Acute kidney failure, unspecified; K70.10 Alcoholic hepatitis without ascites; E87.2 Acidosis; F10.230 Alcohol dependence with withdrawal, uncomplicated; D47.3 Essential (hemorrhagic) thrombocythemia; E87.1 Hypo-osmolality and hyponatremia; E86.9 Volume depletion, unspecified; F17.200 Nicotine dependence, unspecified, uncomplicated; Z59.0 Homelessness
CPT/HCPCS: 80305; 96365; 97116-GP; 97161-GP; 97165-GO; 97530-GO; 97535-GO; G0472; J0456; J0610; J0696; J1630; J1650; J2060; J2250; J2704; J3010; J3411; J3475; J3480; Q9967

== ENCOUNTER 2018-12-24 15:13 | Emergency (ER) | payer MEDICAID | END 2018-12-24 16:19 | disposition home or self-care (01) ==

== ENCOUNTER 2018-12-29 22:16 | Emergency (ER) | payer MEDICAID | END 2018-12-30 14:39 | disposition home or self-care (01) ==